=== PATIENT | female | born 1940 | race Caucasian/White ===

== ENCOUNTER 2020-08-13 16:52 | Outpatient (REF) | payer MEDICARE, SELFPAY ==
[2020-08-13 18:02] LABS: C Reactive Protein 2.16 mg/dL (< or = 0.50)
[2020-08-13 18:11] LABS: Rheumatoid Factor < 15.0 IU/mL (<15.0)
[2020-08-13 18:28] LABS: Erythrocyte Sedimentation Rate 36 MM/HR (0-20)
[2020-08-14 13:37] LABS: Anti Nuclear Antibody Screen NEGATIVE (NEGATIVE)
== END 2020-08-13 16:53 | disposition home or self-care (01) ==
LOC: HO.LAB 16:52
PROVIDERS: PCP Physician Assistant; Visit Provider Physician Assistant
DX: M25.50 Pain in unspecified joint (principal)
CPT/HCPCS: 36415; 85652; 86038; 86039; 86140; 86431

== ENCOUNTER 2020-09-25 15:15 | Outpatient (REF) | payer MEDICARE, SELFPAY ==
[2020-09-25 16:33] LABS: Glucose Urine UA NEG (NEG); Leukocyte Esterase Urine NEG (NEG); Nitrite Urine NEG (NEG); PH 5.5 (5.0-8.0); Specific Gravity - Urine 1.025 (1.005-1.025); Urine Blood TRACE (NEG); Urine Ketones 5 MG/DL (NEG); Urine Protein NEG (NEG-TRACE)
[2020-09-25 16:39] LABS: Appearance Urine CLEAR; Color Urine AMBER
[2020-09-25 16:56] LABS: Bacteria Urine TRACE /LPF; Calcium Oxalate Crystals Urine 1+ /LPF; Mucus Urine 2+ /LPF; Squamous Epithelial Cell Urine 1+ /LPF; WBC Urine 0 /HPF (0-4)
== END 2020-09-25 15:16 | disposition home or self-care (01) ==
LOC: HO.LAB 15:15
PROVIDERS: PCP Physician Assistant; Visit Provider Physician Assistant
DX: R30.0 Dysuria (principal)
CPT/HCPCS: 81001

== ENCOUNTER 2020-11-19 11:03 | Outpatient (REF) | payer MEDICARE, SELFPAY ==
[2020-11-19 12:29] LABS: MANUAL DIFF FLAG NO
[2020-11-19 12:33] LABS: Basophils Absolute Auto 0.1 X10*3/uL (0.0-0.2); Basophils Percent Auto 0.6 % (0-2); Eosinophils Absolute Auto 0.2 X10*3/uL (0.0-0.4); Eosinophils Percent Auto 1.6 % (0-4); Hematocrit 44.1 % (37-47); Hemoglobin 13.8 g/dl (12.0-16.0); Imm Gran Abs Auto 0.05 X10*3/uL (0.00-0.03); Imm Gran Pct Auto 0.5 % (0.0-0.4); Lymphocytes Absolute Auto 2.5 X10*3/uL (1.2-4.9); Lymphocytes Percent Auto 26.2 % (20-40); Mean Corpuscular HGB Conc 31.3 g/dl (31.0-35.0); Mean Corpuscular Hemoglobin 30.2 pg (27.0-33.0); Mean Corpuscular Volume 96.5 fL (80-98); Mean Platelet Volume 11.7 fL (9.4-12.3); Monocytes Absolute Auto 0.9 X10*3/uL (0.1-1.2); Monocytes Percent Auto 9.1 % (2-11); Platelet Count 258 X10*3/uL (160-400); Red Blood Count 4.57 X10*6/uL (4.20-5.50); Red Cell Distribution Width 13.4 % (11.0-16.0); White Blood Count 9.7 X10*3/uL (4.8-10.8)
[2020-11-19 12:56] LABS: Alanine Aminotransferase 11 U/L (0-31); Albumin Level 3.7 g/dL (3.5-5.0); Alkaline Phosphatase 76 U/L (39-117); Anion Gap 10 (12-20); Aspartate Amino Transferase 11 U/L (5-31); Bilirubin Total 0.4 mg/dL (0.0-1.0); Blood Urea Nitrogen 18 mg/dL (9-16); C Reactive Protein 0.29 mg/dL (< or = 0.50); Calcium 9.8 mg/dL (8.4-10.2); Carbon Dioxide 29 mmol/L (22-29); Chloride 108 mmol/L (96-108); Estimated Glomerular Filt Rate > 60; Glucose Random 93 mg/dL (60-115); Potassium 5.2 mmol/L (3.3-5.1); Sodium 142 mmol/L (135-145); Total Protein 6.6 g/dL (6.5-8.0)
[2020-11-19 13:22] LABS: Erythrocyte Sedimentation Rate 11 MM/HR (0-20)
[2020-11-20 05:26] LABS: Lyme Abs Screen <0.90 index
[2020-11-20 20:02] LABS: Cyclic Citrullinated Peptide <16 UNITS
== END 2020-11-19 11:04 | disposition home or self-care (01) ==
LOC: HO.LAB 11:03
PROVIDERS: PCP Physician Assistant; Visit Provider Student in an Organized Health Care Education/Training Program
DX: M25.50 Pain in unspecified joint (principal)
CPT/HCPCS: 36415; 80053; 85025; 85652; 86140; 86200; 86617; 86618; 99202

== ENCOUNTER → 2020-12-15 14:24 | Outpatient (BNVA) | payer MEDICARE, SELFPAY | PROVIDERS: PCP Physician Assistant; Visit Provider Student in an Organized Health Care Education/Training Program | DX: M25.50 Pain in unspecified joint (principal) | CPT/HCPCS: 99212 ==

== ENCOUNTER 2021-02-22 11:47 | Outpatient (REF) | payer MEDICARE, SELFPAY ==
[2021-02-22 13:51] LABS: C Reactive Protein 0.51 mg/dL (< or = 0.50)
[2021-02-22 14:07] LABS: Erythrocyte Sedimentation Rate 16 MM/HR (0-20)
== END 2021-02-22 11:48 | disposition home or self-care (01) ==
LOC: HO.LAB 11:47
PROVIDERS: PCP Physician Assistant; Visit Provider Student in an Organized Health Care Education/Training Program
DX: M25.50 Pain in unspecified joint (principal)
CPT/HCPCS: 36415; 85652; 86140

== ENCOUNTER → 2021-02-26 14:19 | Outpatient (BNVA) | payer MEDICARE, SELFPAY | PROVIDERS: PCP Physician Assistant; Visit Provider Student in an Organized Health Care Education/Training Program | DX: M35.3 Polymyalgia rheumatica (principal); R51.9 Headache, unspecified | CPT/HCPCS: 99212 ==

== ENCOUNTER 2021-03-17 16:08 | Outpatient (REF) | payer MEDICARE, SELFPAY ==
--- NOTE | ~2021-03-17 | US_ITS ---
EXAMINATION: US SOFT TISSUE OF THE NECK CLINICAL INFORMATION: Polymyalgia rheumatica. COMPARISON: None TECHNIQUE: Linear transducer grayscale and color Doppler examination of the temporal arteries. FINDINGS: The temporal arteries appear morphologically normal. No evidence of wall thickening or halo sign is seen. Temporal artery peak systolic velocities are normal measuring 40, 86 and 46 cm/s proximally in the midportion and distally on the right and 72 x 62 x 44 centimeters per second on the left. Frontal branch artery demonstrate normal peak systolic velocities measuring 52 cm/s on the right and 57 mm/s on the left. Parietal branch branch of the temporal arteries demonstrates normal peak systolic velocity of 52 cm/s on the right and 57 cm/s on the left. US/US soft tiss head and/or neck IMPRESSION: Normal temporal artery ultrasound.
== END 2021-03-17 16:09 | disposition home or self-care (01) ==
LOC: HO.US 16:08
PROVIDERS: Visit Provider Student in an Organized Health Care Education/Training Program
DX: M35.3 Polymyalgia rheumatica (principal)
CPT/HCPCS: 76536

== ENCOUNTER → 2021-03-19 09:45 | Outpatient (BNVA) | payer MEDICARE, SELFPAY | PROVIDERS: PCP Physician Assistant; Visit Provider Student in an Organized Health Care Education/Training Program | DX: M35.3 Polymyalgia rheumatica (principal); R51.9 Headache, unspecified | CPT/HCPCS: Q3014 ==

== ENCOUNTER 2021-04-12 11:53 | Observation (INO) | payer MEDICARE, SELFPAY ==
[2021-04-12] VITALS (11 sets, daily range): BP systolic 114–184; BP diastolic 63–87; PULSE 54–87; RESP 16–18; TEMP 36.6–36.8; O2SAT 95–99; BMI 22.4
--- NOTE | ~2021-04-12 | US_ITS ---
EXAMINATION: US EXTRACRANIAL CAROTID DUPLEX, BILATERAL CLINICAL INFORMATION: Syncope COMPARISON: Previous carotid ultrasound exam December [address] April 2021 TECHNIQUE: Real-time ultrasound and Doppler techniques (integrating B-mode 2-D vascular images, Doppler spectral analysis and color-flow Doppler imaging) were utilized to interrogate the extracranial carotid arteries, the vertebral arteries and proximal subclavian arteries bilaterally. The degree of stenosis is determined by criteria similar to NASCET. FINDINGS: Right Side: 1. There is mild to moderate atherosclerotic plaque seen in the bifurcation/proximal ICA region. 2. The common carotid artery PSV proximally is 108 cm/s and distally 63 cm/s. 3. The proximal internal carotid artery velocities are 80 cm/s systolic and 22 cm/s diastolic. 4. The proximal external carotid artery PSV is 107 cm/s. 5. The vertebral artery shows antegrade flow. 6. The subclavian artery waveforms are normal. Left Side: 1. There is mild to moderate atherosclerotic plaque seen in the bifurcation/proximal ICA region. 2. The common carotid artery PSV proximally is 105 cm/s and distally 86 cm/s. 3. The proximal internal carotid artery velocities are 75 cm/s systolic and 15 cm/s diastolic. 4. The proximal external carotid artery PSV is 96 cm/s. 5. The vertebral artery shows antegrade flow. 6. The subclavian artery waveforms are normal. There are 2 left thyroid nodules. These appear solid and isoechoic and measure 1 x 0.9 x 1.4 cm and 2.9 x 2.2 x 2.2 cm. US/US carotid duplex BI IMPRESSION: 1. RIGHT: Mild to moderate atherosclerotic plaque. 0-49% right ICA stenosis. 2. LEFT: Mild to moderate atherosclerotic plaque. 0-49% left ICA stenosis. 3. In comparison with prior exam December 2014 there is no change in disease severity on the right and interval increase in disease severity on the left. Left thyroid nodules, largest measuring 2.9 x 2.2 x 2.2 cm. Follow-up thyroid recommended.
--- NOTE | ~2021-04-12 | CT_ITS ---
EXAMINATION: CT BRAIN AND CT CERVICAL SPINE WITHOUT CONTRAST. CLINICAL INFORMATION: Fall, LOC and vomiting. COMPARISON: None TECHNIQUE: 5 mm thin axial and reformatted 2 mm thin sagittal and coronal images of brain were obtained without contrast. Subsequently axial 3 mm thin and reformatted 2 mm thin sagittal coronal images of brain were obtained. DLP [id number]. FINDINGS: Brain: There is no acute intra-axial, extra-axial bleed, masses or midline shift is no acute infarction evolution. There is no edema. The lateral ventricles are symmetrical but mildly enlarged and so other cortical sulci. There is diffuse periventricular hypodensity in both cerebral hemispheres without mass effect. Bone windows reveal no calvarial abnormality. No fracture seen. There is no scalp soft tissue abnormality. There is complete opacification of left maxillary, ethmoid and frontal sinuses. Rest of the sinuses and mastoid air cells are well-aerated there is john bullosa right middle turbinate.. Cervical spine: On sagittal reconstructed images there is no mild straightening of cervical lordosis. There is grade 1 anterolisthesis C3 over C4, C4 or C5 and C5 over C6 disc level. There is marrow mild narrowing of C4-C5, C5-C6, C6-C7 and C7-T1 disc levels. The craniovertebral junction and the C1-C2 alignment is normal. There is mild left C2-C3, C3-C4, C4-C5 facet joint arthropathy. There is no visible fracture or lytic process. The prevertebral soft tissues are normal. CT/CT cervical spine wo con IMPRESSION: No acute intracranial process seen. Acute left frontal, ethmoid and maxillary sinus inflammatory changes. There is mild straightening of cervical lordosis. No visible acute fracture or dislocation seen. There is grade 1 degenerative anterolisthesis C4 over C5 and C5 over C6. There is no visible fracture or lytic process seen.
--- NOTE | ~2021-04-12 | CT_ITS ---
EXAMINATION: CT ANGIOGRAM OF THE CHEST WITH AND WITHOUT CONTRAST (CT PULMONARY ANGIOGRAM FOR PE) CLINICAL INFORMATION: Reason for Exam syncope, elevated dimer COMPARISON: None TECHNIQUE: Prior to contrast administration, noncontrast localization images were obtained. Subsequently, multidetector volumetric imaging was performed from the thoracic inlet to below the diaphragms following the administration of 80 mL Omnipaque 350 intravenous contrast. No contrast reaction reported Sagittal, coronal, and MIP oblique sagittal reformatted images were obtained on the CT workstation, uploaded to PACS, and reviewed. This CT examination was performed using dose optimization techniques as appropriate, variously including the following: *Automated exposure control *Adjustment of mA and/or kV according to patient size (this includes techniques or standardized protocols for targeted exams where dose is matched to indication/reason for exam; i.e. extremities or head) *Use of iterative reconstruction technique Total exam dose-length product 267 mGy-cm FINDINGS: QUALITY OF STUDY/CONTRAST BOLUS: Satisfactory. PULMONARY ARTERIES: No central or segmental pulmonary emboli. THORACIC AORTA: No aneurysm or dissection. LUNG: Moderate apical predominant emphysematous disease. Bilateral posterior dependent atelectasis, left greater than right. PLEURA: No pleural effusion or pneumothorax. MEDIASTINUM: Normal heart size. No pericardial effusion. No hilar or mediastinal lymphadenopathy. No evidence of septal bowing or right heart strain. CHEST WALL/AXILLA: No axillary or internal mammary lymphadenopathy. OSSEOUS STRUCTURES: No acute or suspicious osseous abnormality. UPPER ABDOMEN: Redemonstration of the left adrenal cystic lesion. No reflux of contrast into the hepatic veins to suggest elevated right heart pressures. CT/CT angio chest PE protocol IMPRESSION: No pulmonary embolism. Bibasilar atelectasis, left greater than right. VTE: negative
--- NOTE | ~2021-04-12 | XR_ITS ---
EXAMINATION: XR SACRUM AND COCCYX CLINICAL INFORMATION: Fall, coccyx pain. COMPARISON: None TECHNIQUE: 2 views of the sacrum and 2 views of the coccyx were obtained. FINDINGS: There is no visible acute fracture, dislocation or subluxation seen. The SI joints are symmetrical and normal. The presacral and postsurgical soft tissues are normal. XR/XR sacrum coccyx min 2V IMPRESSION: Unremarkable sacrum and coccyx exam.
--- NOTE | 2021-04-12 12:07 | ECG_ITS ---
Test Reason : SYNCOPE Blood Pressure : / mmHG Vent. Rate : 063 BPM Atrial Rate : 063 BPM P-R Int : 218 ms QRS Dur : 096 ms QT Int : 468 ms P-R-T Axes : 066 -73 019 degrees QTc Int : 478 ms Sinus rhythm with 1st degree A-V block Left anterior fascicular block Cannot rule out Inferior infarct (masked by fascicular block?) , age undetermined Possible Anterior infarct (cited on or before 14-MAY-2015) Abnormal ECG When compared with ECG of 14-MAY-2015 16:20, MT interval has increased Incomplete right bundle branch block is no longer Present Referred By: Alicia Amor Electronically Signed By:MICHELLE MURRAY
--- NOTE | 2021-04-12 12:10 | ED.GENADULT ---
HPI - General Adult General Chief complaint: Syncope Stated complaint: SYNCOPAL EPISODE,HEAD LAC,-THINNER,+C-COLLAR Time Seen by Provider: 04/12/21 11:56 Source: patient and EMS Mode of arrival: EMS Limitations: no limitations History of Present Illness HPI narrative: Patient comes emergency room complaining of syncopal episode leading to a fall and head laceration. Patient states that she was standing in her kitchen preparing herself a bagel, suddenly she had a sensation of profound weakness, patient fell backwards. Patient states she lost consciousness. Patient estimates that she was on the floor for approximately 15 minutes before her daughter found her. Patient complaining of localized scalp pain. Denies neck pain, complaining of coccyx pain. In the ambulance, patient started complaining of nausea and vomiting. She was given 1 dose of Zofran. On arrival to the emergency room, patient still feels very nauseous. Patient denies being on blood thinners. Patient denies chest pain, no shortness of breath, no symptoms prior to the syncopal episode. Related Data Previous Rx's Medication Instructions Recorded prednisone 1 mg tablet 4 mg PO DAILY #120 tab 03/02/21 Allergies Allergy/AdvReac Type Severity Reaction Status Date / Time codeine [CODEINE] Allergy Intermediate BUMPS IN Verified 04/12/21 12:05 MOUTH Penicillins [PENICILLINS] Allergy Intermediate mouth sores Verified 04/12/21 12:05 Review of Systems Review of Systems: Constitutional : No Weight loss, No Fever, No Chills, No Night Sweats, No Fatigue, No Malaise ENT/Mouth : No Hearing loss, No Ear Pain, No Nasal Congestion, No Sinus Pain, No Hoarseness, No sore throat, No Rhinorrhea, No Swallowing Difficulty Eyes: No Eye Pain, No Swelling, No Redness, No Foreign Body, No Discharge, No Vision Changes Cardiovascular : No Chest Pain, No SOB, No Dyspnea on Exertion, No Orthopnea, No Edema, No Palpitations Respiratory : No Cough, No Sputum, No Wheezing, No Smoke Exposure, No Dyspnea Gastrointestinal : No Nausea, No Vomiting, No Diarrhea, No Constipation, No abdominal Pain, No Hematochezia, No Melena Genitourinary : no irregular bleeding, No Dysuria, No Urinary Frequency, No Hematuria, No Urinary Incontinence, No Urgency, No Flank Pain, No Urinary Flow Changes, No Hesitancy Musculoskeletal : Complaining of coccyx pain Skin : Skin laceration to the scalp Neuro : No Weakness, No Numbness, No Paresthesias, complaining of a syncopal episode, loss of consciousness Psych : No Anxiety/Panic, No Depression, No SI/HI/AH/VH, No Social Issues, Heme/Lymph: No Bruising, No Bleeding,No Lymphadenopathy Endocrine : No Polyuria, No Polydipsia, No Temperature Intolerance [facility] Past Medical History Medical History Arthritis Surgical History Hx of appendectomy Hx of cholecystectomy Social History Social History Housing: House Alcohol intake: never Patient Tobacco Use Status: Current everyday Tobacco user Tobacco use type: Cigarette Cigarettes Per Day: 10 Years Smoked: 50 years Use of substances other than those prescribed or required for medical reasons: No Advance Directives: Yes Advance Directives Information Provided: Yes Advance Directives on File: No service: No Current occupational status: retired Physical Exam Vital Signs: Vital Signs: Last Vital Signs Temp 98.1 F 04/12/21 17:55 Pulse 54 04/12/21 17:55 Resp 18 04/12/21 17:55 BP 184/76 H 04/12/21 17:55 Pulse Ox 98 04/12/21 17:55 Body Mass Index 22.4 Const: Other: Appearance: Alert. Oriented X3. Patient seems nauseous, pale Eyes: Pupils equal, round and reactive to light. ENT: Pharynx normal. Neck: On C-collar precautions, no C-spine tenderness, no crepitus, no palpable step-offs CVS: Normal heart rate and rhythm. Pulses normal. Normal S1 and S2 Respiratory: No respiratory distress. Breath sounds normal. No Wheezing. No rales Abdomen: Soft and nontender. No rigidity. No distention. Skin: Skin cool to touch, pale, laceration to the scalp Extremities: No lower extremity edema. Moves all extremities, no pain to palpation, normal range of motion Neuro: Oriented X 3. No motor deficit. No sensory deficit. Moving all extermities. No slurred speech. Course Course Course Narrative: Patient states that she feels much better, however a bit dizzy when she stands up. Orthostatic vitals were negative. I discussed the patient with our hospitalist, patient is being admitted. Procedures Laceration Laceration 1: Site: scalp Size (cm): 3 Description: irregular Depth: simple, single layer Skin layer closed with: other (Sharri) Number of sutures: 4 Medical Decision Making Lab Data Result diagrams: 04/12/21 12:21 04/12/21 12:21 Labs: Lab Results 04/12/21 04/12/21 04/12/21 Range/Units 12:21 12:21 12:21 WBC 11.1 H (4.8-10.8) X10*3/uL RBC 4.24 (4.20-5.50) X10*6/uL Hgb 13.3 (12.0-16.0) g/dl Hct 41.2 (37-47) % MCV 97.2 (80-98) fL MCH 31.4 (27.0-33.0) pg MCHC 32.3 (31.0-35.0) g/dl RDW 13.3 (11.0-16.0) % Plt Count 264 (160-400) X10*3/uL MPV 11.2 (9.4-12.3) fL Immature Gran % (Auto) 0.5 H (0.0-0.4) % Neut % (Auto) 46.5 (45-73) % Lymph % (Auto) 41.2 H (20-40) % [place] % (Auto) 8.6 (2-11) % Eos % (Auto) 2.5 (0-4) % Baso % (Auto) 0.7 (0-2) % Lymph # (Auto) 4.6 (1.2-4.9) X10*3/uL [place] # (Auto) 1.0 (0.1-1.2) X10*3/uL Eos # (Auto) 0.3 (0.0-0.4) X10*3/uL Baso # (Auto) 0.1 (0.0-0.2) X10*3/uL Abs Immat Gran (auto) 0.06 H (0.00-0.03) X10*3/uL Absolute Neuts (auto) 5.2 (2.0-8.3) X10*3/uL Absolute Nucleated RBC 0.000 (0.0-0.012) X10*3/uL Nucleated RBC % (auto) 0.0 (0.0-0.2) /100WBC D-Dimer NG/ML Sodium 143 (135-145) mmol/L Potassium 3.8 D (3.3-5.1) mmol/L Chloride 109 H (96-108) mmol/L Carbon Dioxide 26 (22-29) mmol/L Anion Gap 12 (12-20) BUN 14 (9-16) mg/dL Creatinine 0.69 (0.5-1.4) mg/dL Estim Creat Clear Calc 58.5 Estimated GFR > 60 Random Glucose 102 (60-115) mg/dL Calcium 9.7 (8.4-10.2) mg/dL Total Bilirubin 0.3 (0.0-1.0) mg/dL Direct Bilirubin 0.2 (0.0-0.5) mg/dL AST 17 D (5-31) U/L ALT 12 (0-31) U/L Alkaline Phosphatase 71 (39-117) U/L Total Creatine Kinase 35 (26-140) U/L Troponin I High Sens < 3.5 (<3.5-17.0) ng/L Total Protein 6.9 (6.5-8.0) g/dL Albumin 3.7 (3.5-5.0) g/dL Urine Color Urine Appearance Urine pH (5.0-8.0) Ur Specific [place] (1.005-1.025) Urine Protein (NEG-TRACE) MG/DL Urine Glucose (UA) (NEG) MG/DL Urine Ketones (NEG) MG/DL Urine Blood (NEG) Urine Nitrite (NEG) Ur Leukocyte Esterase (NEG) Urine RBC (0) /HPF Urine WBC (0-4) /HPF Ur Squamous Epith Cells /LPF Urine Bacteria /LPF 04/12/21 04/12/21 04/12/21 Range/Units 15:06 15:06 16:43 WBC (4.8-10.8) X10*3/uL RBC (4.20-5.50) X10*6/uL Hgb (12.0-16.0) g/dl Hct (37-47) % MCV (80-98) fL MCH (27.0-33.0) pg MCHC (31.0-35.0) g/dl RDW (11.0-16.0) % Plt Count (160-400) X10*3/uL MPV (9.4-12.3) fL Immature Gran % (Auto) (0.0-0.4) % Neut % (Auto) (45-73) % Lymph % (Auto) (20-40) % [place] % (Auto) (2-11) % Eos % (Auto) (0-4) % Baso % (Auto) (0-2) % Lymph # (Auto) (1.2-4.9) X10*3/uL [place] # (Auto) (0.1-1.2) X10*3/uL Eos # (Auto) (0.0-0.4) X10*3/uL Baso # (Auto) (0.0-0.2) X10*3/uL Abs Immat Gran (auto) (0.00-0.03) X10*3/uL Absolute Neuts (auto) (2.0-8.3) X10*3/uL Absolute Nucleated RBC (0.0-0.012) X10*3/uL Nucleated RBC % (auto) (0.0-0.2) /100WBC D-Dimer 705 NG/ML Sodium (135-145) mmol/L Potassium (3.3-5.1) mmol/L Chloride (96-108) mmol/L Carbon Dioxide (22-29) mmol/L Anion Gap (12-20) BUN (9-16) mg/dL Creatinine (0.5-1.4) mg/dL Estim Creat Clear Calc Estimated GFR Random Glucose (60-115) mg/dL Calcium (8.4-10.2) mg/dL Total Bilirubin (0.0-1.0) mg/dL Direct Bilirubin (0.0-0.5) mg/dL AST (5-31) U/L ALT (0-31) U/L Alkaline Phosphatase (39-117) U/L Total Creatine Kinase (26-140) U/L Troponin I High Sens < 3.5 (<3.5-17.0) ng/L Total Protein (6.5-8.0) g/dL Albumin (3.5-5.0) g/dL Urine Color YELLOW Urine Appearance CLEAR Urine pH 6.5 (5.0-8.0) Ur Specific [place] 1.010 (1.005-1.025) Urine Protein NEG (NEG-TRACE) MG/DL Urine Glucose (UA) NEG (NEG) MG/DL Urine Ketones NEG (NEG) MG/DL Urine Blood TRACE (NEG) Urine Nitrite NEG (NEG) Ur Leukocyte Esterase NEG (NEG) Urine RBC 0-2 (0) /HPF Urine WBC 0-2 (0-4) /HPF Ur Squamous Epith Cells TRACE /LPF Urine Bacteria NONE /LPF Imaging Data CTA : Radiologist's impression: FINDINGS: QUALITY OF STUDY/CONTRAST BOLUS: Satisfactory. PULMONARY ARTERIES: No central or segmental pulmonary emboli.? THORACIC AORTA: No aneurysm or dissection. LUNG: Moderate apical predominant emphysematous disease. Bilateral posterior dependent atelectasis, left greater than right. PLEURA: No pleural effusion or pneumothorax. MEDIASTINUM: Normal heart size.? No pericardial effusion.? No hilar or mediastinal lymphadenopathy.? No evidence of septal bowing or right heart strain. CHEST WALL/AXILLA: No axillary or internal mammary lymphadenopathy. OSSEOUS STRUCTURES: No acute or suspicious osseous abnormality.? UPPER ABDOMEN: Redemonstration of the left adrenal cystic lesion. No reflux of contrast into the hepatic veins to suggest elevated right heart pressures. CT/CT angio chest PE protocol IMPRESSION: No pulmonary embolism. Bibasilar atelectasis, left greater than right. ? VTE: negative Head and cervical spine CT: Radiologist's impression: [address] [address] [address] Scan Report Signed Patient: Soledad Clark MR#: [id number] : 1940 Acct:[id number] Age/Sex: 80 / F ADM Date: 04/12/21 Loc: HO.ED Attending Dr: Ordering Physician: Alicia Amor MD Date of Service: 04/12/21 Procedure(s): CT head/brain wo con Accession Number(s): [id number] cc: Alicia Amor MD~ EXAMINATION: CT BRAIN AND CT CERVICAL SPINE WITHOUT CONTRAST. CLINICAL INFORMATION: Fall, LOC and vomiting.? COMPARISON: None? TECHNIQUE: 5 mm thin axial and reformatted 2 mm thin sagittal and coronal images of brain were obtained without contrast. Subsequently axial 3 mm thin and reformatted 2 mm thin sagittal coronal images of brain were obtained. DLP 828. FINDINGS: Brain: There is no acute intra-axial, extra-axial bleed, masses or midline shift is no acute infarction evolution. There is no edema. The lateral ventricles are symmetrical but mildly enlarged and so other cortical sulci. There is diffuse periventricular hypodensity in both cerebral hemispheres without mass effect. Bone windows reveal no calvarial abnormality. No fracture seen. There is no scalp soft tissue abnormality. There is complete opacification of left maxillary, ethmoid and frontal sinuses. Rest of the sinuses and mastoid air cells are well-aerated there is john bullosa right middle turbinate.. Cervical spine: On sagittal reconstructed images there is no mild straightening of cervical lordosis. There is grade 1 anterolisthesis C3 over C4, C4 or C5 and C5 over C6 disc level. There is marrow mild narrowing of C4-C5, C5-C6, C6-C7 and C7-T1 disc levels. The craniovertebral junction and the C1-C2 alignment is normal. There is mild left C2-C3, C3-C4, C4-C5 facet joint arthropathy. There is no visible fracture or lytic process. The prevertebral soft tissues are normal. CT/CT head/brain wo con IMPRESSION: No acute intracranial process seen. ? Acute left frontal, ethmoid and maxillary sinus inflammatory changes. ? There is mild straightening of cervical lordosis. No visible acute fracture or dislocation seen. ? There is grade 1 degenerative anterolisthesis C4 over C5 and C5 over C6. There is no visible fracture or lytic process seen. ECG Data Attestation: I personally reviewed and interpreted this ECG as follows: (Sinus bradycardia first-degree block, heart rate 63, no ST segment depression or elevation, no T-wave inversion, QTC 478. EKG 2: Sinus bradycardia 1st degree block, heart rate 55, no changes from 1st EKG.) Discharge Plan Discharge Clinical Impression: Syncope, Scalp laceration Patient Disposition: Admitted As Inpatient Prescriptions: No Action prednisone 1 mg tablet 4 mg PO DAILY Qty: 120 RF: 2
[2021-04-12 12:25] LABS: MANUAL DIFF FLAG NO
[2021-04-12] MEDS: Prochlorperazine Edisylate 10 MG/2 ML VIAL IVPUSH (12:25)
[2021-04-12] MEDS: 0.9 % Sodium Chloride 1,000 ML 999 ML IVCONT ×2 (12:25→17:51)
[2021-04-12] MEDS: Acetaminophen 325 MG TABLET 650 MG PO ×2 (12:25→23:02)
[2021-04-12 12:27] LABS: Basophils Absolute Auto 0.1 X10*3/uL (0.0-0.2); Basophils Percent Auto 0.7 % (0-2); Eosinophils Absolute Auto 0.3 X10*3/uL (0.0-0.4); Eosinophils Percent Auto 2.5 % (0-4); Hematocrit 41.2 % (37-47); Hemoglobin 13.3 g/dl (12.0-16.0); Imm Gran Abs Auto 0.06 X10*3/uL (0.00-0.03); Imm Gran Pct Auto 0.5 % (0.0-0.4); Lymphocytes Absolute Auto 4.6 X10*3/uL (1.2-4.9); Lymphocytes Percent Auto 41.2 % (20-40); Mean Corpuscular HGB Conc 32.3 g/dl (31.0-35.0); Mean Corpuscular Hemoglobin 31.4 pg (27.0-33.0); Mean Corpuscular Volume 97.2 fL (80-98); Mean Platelet Volume 11.2 fL (9.4-12.3); Monocytes Percent Auto 8.6 % (2-11); Neutrophils Absolute Auto 5.2 X10*3/uL (2.0-8.3); Neutrophils Percent Auto 46.5 % (45-73); Platelet Count 264 X10*3/uL (160-400); Red Blood Count 4.24 X10*6/uL (4.20-5.50); Red Cell Distribution Width 13.3 % (11.0-16.0); White Blood Count 11.1 X10*3/uL (4.8-10.8)
--- NOTE | 2021-04-12 12:28 | PC.NURSE ---
patient a&ox3, pvc monitor applied pt nsr on monitor, vitals stable, iv inserted by ems- pt labs drawn, medicated per order, red socks/fall wristband placed, stretcher in lowest position, pt c/o 02/16 head pain, will continue to monitor
--- NOTE | 2021-04-12 12:29 | PC.NURSE ---
pt to ct scan
[2021-04-12 12:46] LABS: Alanine Aminotransferase 12 U/L (0-31); Albumin Level 3.7 g/dL (3.5-5.0); Alkaline Phosphatase 71 U/L (39-117); Anion Gap 12 (12-20); Aspartate Amino Transferase 17 U/L (5-31); Bilirubin Direct 0.2 mg/dL (0.0-0.5); Bilirubin Total 0.3 mg/dL (0.0-1.0); Blood Urea Nitrogen 14 mg/dL (9-16); Calcium 9.7 mg/dL (8.4-10.2); Carbon Dioxide 26 mmol/L (22-29); Chloride 109 mmol/L (96-108); Creatinine Clr Calc Pharmacy 58.5; Estimated Glomerular Filt Rate > 60; Glucose Random 102 mg/dL (60-115); Potassium 3.8 mmol/L (3.3-5.1); Sodium 143 mmol/L (135-145); Total Protein 6.9 g/dL (6.5-8.0)
[2021-04-12 12:48] LABS: Troponin-I High Sensitivity < 3.5 ng/L (<3.5-17.0)
--- NOTE | 2021-04-12 14:05 | PC.NURSE ---
patient a&ox3, cardiac rehabilitation program director intact, vss, patient on bedpan to provide urine, dr pryor in to talk to daughter who is at bedside, will continue to monitor.
[2021-04-12 15:13] LABS: Appearance Urine CLEAR; Color Urine YELLOW; Glucose Urine UA NEG (NEG); Leukocyte Esterase Urine NEG (NEG); Nitrite Urine NEG (NEG); PH 6.5 (5.0-8.0); UACC Culture Trigger NO; Urine Blood TRACE (NEG); Urine Ketones NEG (NEG); Urine Protein NEG (NEG-TRACE)
--- NOTE | 2021-04-12 15:28 | ECG_ITS ---
Test Reason : HX SYNCOPE Blood Pressure : / mmHG Vent. Rate : 055 BPM Atrial Rate : 055 BPM P-R Int : 220 ms QRS Dur : 098 ms QT Int : 460 ms P-R-T Axes : 060 -70 028 degrees QTc Int : 440 ms Sinus bradycardia with 1st degree A-V block Left anterior fascicular block Possible Anterior infarct (cited on or before 14-MAY-2015) Abnormal ECG When compared with ECG of 12-APR-2021 12:55, No significant change was found Referred By: Alicia Amor Electronically Signed By:MICHELLE MURRAY
[2021-04-12 15:30] LABS: Troponin-I High Sensitivity < 3.5 ng/L (<3.5-17.0)
[2021-04-12 15:32] LABS: RBC Urine 0-2 /HPF (0); WBC Urine 0-2 /HPF (0-4)
[2021-04-12 15:33] LABS: Squamous Epithelial Cell Urine TRACE /LPF
--- NOTE | 2021-04-12 16:18 | PC.NURSE ---
patient a&ox3, pt c/o mild headache, vitals stable, daughter at bedside asking about patients disposition and wishing to speak with provider, will notify provider and continue to monitor.
[2021-04-12 16:57] LABS: D Dimer 705 NG/ML
[2021-04-12] MEDS: Meclizine HCl 25 MG TABLET PO (17:51)
--- NOTE | 2021-04-12 17:55 | PC.NURSE ---
iv changed over for ct scan, pt medicated per order, vss, will continue to monitor
--- NOTE | 2021-04-12 18:12 | PC.NURSE ---
patient oob with stby assist to commode to urinate, pt tolerated well, pt remains nsr on shelter monitor, will continue to monitor.
[2021-04-12] MEDS: iohexoL 350 MG/ML 100 ML INFUS..BTL IV (18:31)
--- NOTE | 2021-04-12 20:07 | PM.IMHP ---
History of Present Illness Date of Service: 04/12/21 Chief Complaint: Syncope This is an 80-year-old female with past medical history of rheumatoid arthritis on chronic prednisone presents to the hospital with syncopal episode. Patient reports that she woke up likely her usual, bronchus, was sitting on the kitchen table, got up to make a bagel for herself, had a strange feeling that she is going to pass out, and the next thing she remembers is finding herself on the floor. She does not recall having any lightheadedness, no chest pain, no chest palpitations, no change in vision, no shortness of breath, no abdominal pain nausea or vomiting, no diarrhea constipation, no urinary symptoms and no lower extremity edema. When she came about she was not confused, she did not have evidence of seizure activity. No the mix weakness thing repair it no loss of bladder or bowel control. She had her head on her fall. On arrival to the ED patient hemodynamically stable with vital significant for temp of 98.1?, heart rate of 62, respiratory rate of 18, blood pressure of 114/70, room air. Labs are significant for WBC count of 11.1, otherwise unremarkable. UA negative. CT angiogram of the chest showed embolism. Bilateral atelectasis, A CT showed no acute intracranial process, acute left frontal ethmoid and maxillary sinus inflammatory changes, mild straightening of cervical lordosis. EKG showed first-degree AV block with left anterior fascicular block. Patient underwent stitches for the laceration in her head will be admitted for further management. Review of Systems Review of Systems: Yes all other systems are reviewed and are negative [facility] Medical History Arthritis Rheumatoid arthritis Family History Mother Coronary artery disease Myocardial infarction Pertinent family history: No pertinent history Surgical History Hx of appendectomy Hx of cholecystectomy Social History Housing: House Alcohol intake: never Patient Tobacco Use Status: Current everyday Tobacco user Tobacco use type: Cigarette Cigarette Packs Per Day: 0.5 Cigarettes Per Day: 10.0 Years Smoked: 50 years Smoked in Last 30 Days: Yes Patient Interested in Nicotine Replacement: No Patient Given Instructions on How to Stop Smoking: Yes Date Education Initiated: 04/12/21 Second Hand Smoke Exposure: Yes Use of substances other than those prescribed or required for medical reasons: No Advance Directives: Yes Advance Directives Information Provided: Yes Advance Directives on File: No Advance Directives Date on File: 04/12/21 service: No Current occupational status: retired Meds Allergies Allergy/AdvReac Type Severity Reaction Status Date / Time codeine [CODEINE] Allergy Intermediate BUMPS IN Verified 04/12/21 12:05 MOUTH Penicillins [PENICILLINS] Allergy Intermediate mouth sores Verified 04/12/21 12:05 Home Medications Medication Instructions Recorded Confirmed Last Taken Type ascorbic acid (vitamin C) 500 mg 500 mg PO DAILY 04/12/21 04/12/21 04/11/21 History tablet (Vitamin C) aspirin 81 mg tablet,delayed 81 mg PO DAILY 04/12/21 04/12/21 04/11/21 History release cholecalciferol (vitamin D3) 25 25 mcg PO DAILY 04/12/21 04/12/21 04/11/21 History mcg (1,000 unit) tablet (Vitamin D3) multivitamin 1 tab PO DAILY 04/12/21 04/12/21 04/11/21 History omega 6-plh-tra-fish oil 1,000 mg 1 cap PO DAILY 04/12/21 04/12/21 04/11/21 History (120 mg-180 mg) capsule (Fish Oil) prednisone 1 mg tablet 1 mg PO DAILY 04/12/21 04/12/21 04/11/21 History Physical Exam Vital Signs and Narrative: Vital Signs: Last Vital Signs Temp 98.1 F 04/12/21 17:55 Pulse 54 04/12/21 17:55 Resp 18 04/12/21 17:55 BP 184/76 H 04/12/21 17:55 Pulse Ox 98 04/12/21 17:55 Body Mass Index 22.4 Const: General: cooperative and no acute distress Orientation/consciousness: patient oriented x3 HENMT: Other: Laceration in the back of the head, status post suturing Eyes: General: appearance normal, both eyes and all related structures Pupils: Equal, round and reactive pupils present Resp: Effort & Inspection: normal respiratory effort Auscultation: clear to auscultation bilaterally Cardio: Rate: regular rate Rhythm: regular rhythm GI: Palpation (GI): Soft to palpation Auscultation: normal bowel sounds Skin: General skin exam: no rashes or lesions noted Neuro: Other: No neurological deficits General: patient oriented x3 Cranial nerves: Yes Equal, round and reactive pupils present Cognition (Neuro): normal cognition Extrem: General: Yes normal to inspection and Yes no pedal edema Results Labs CBC and Chem 7: 04/12/21 12:21 04/12/21 12:21 Labs: Laboratory Results - last 24 hr 04/12/21 04/12/21 04/12/21 12:21 12:21 12:21 MCV 97.2 MCH 31.4 MCHC 32.3 RDW 13.3 Plt Count 264 MPV 11.2 Immature Gran % (Auto) 0.5 H Neut % (Auto) 46.5 Lymph % (Auto) 41.2 H [place] % (Auto) 8.6 Eos % (Auto) 2.5 Baso % (Auto) 0.7 Lymph # (Auto) 4.6 [place] # (Auto) 1.0 Eos # (Auto) 0.3 Baso # (Auto) 0.1 Abs Immat Gran (auto) 0.06 H Absolute Neuts (auto) 5.2 Absolute Nucleated RBC 0.000 Nucleated RBC % (auto) 0.0 D-Dimer Anion Gap 12 Estim Creat Clear Calc 58.5 Estimated GFR > 60 Random Glucose 102 Calcium 9.7 Total Bilirubin 0.3 Direct Bilirubin 0.2 AST 17 D ALT 12 Alkaline Phosphatase 71 Total Creatine Kinase 35 Troponin I High Sens < 3.5 Total Protein 6.9 Albumin 3.7 Urine Color Urine Appearance Urine pH Ur Specific [place] Urine Protein Urine Glucose (UA) Urine Ketones Urine Blood Urine Nitrite Ur Leukocyte Esterase Urine RBC Urine WBC Ur Squamous Epith Cells Urine Bacteria 04/12/21 04/12/21 04/12/21 15:06 15:06 16:43 MCV MCH MCHC RDW Plt Count MPV Immature Gran % (Auto) Neut % (Auto) Lymph % (Auto) [place] % (Auto) Eos % (Auto) Baso % (Auto) Lymph # (Auto) [place] # (Auto) Eos # (Auto) Baso # (Auto) Abs Immat Gran (auto) Absolute Neuts (auto) Absolute Nucleated RBC Nucleated RBC % (auto) D-Dimer 705 Anion Gap Estim Creat Clear Calc Estimated GFR Random Glucose Calcium Total Bilirubin Direct Bilirubin AST ALT Alkaline Phosphatase Total Creatine Kinase Troponin I High Sens < 3.5 Total Protein Albumin Urine Color YELLOW Urine Appearance CLEAR Urine pH 6.5 Ur Specific [place] 1.010 Urine Protein NEG Urine Glucose (UA) NEG Urine Ketones NEG Urine Blood TRACE Urine Nitrite NEG Ur Leukocyte Esterase NEG Urine RBC 0-2 Urine WBC 0-2 Ur Squamous Epith Cells TRACE Urine Bacteria NONE Imaging Radiologist's Impressions: Impressions Cervical Spine CT 04/12/21 12:07 IMPRESSION: No acute intracranial process seen. Acute left frontal, ethmoid and maxillary sinus inflammatory changes. There is mild straightening of cervical lordosis. No visible acute fracture or dislocation seen. There is grade 1 degenerative anterolisthesis C4 over C5 and C5 over C6. There is no visible fracture or lytic process seen. Head CT 04/12/21 12:07 IMPRESSION: No acute intracranial process seen. Acute left frontal, ethmoid and maxillary sinus inflammatory changes. There is mild straightening of cervical lordosis. No visible acute fracture or dislocation seen. There is grade 1 degenerative anterolisthesis C4 over C5 and C5 over C6. There is no visible fracture or lytic process seen. Sacrum and Coccyx X-Ray 04/12/21 12:12 IMPRESSION: Unremarkable sacrum and coccyx exam. Chest CTA 04/12/21 17:34 IMPRESSION: No pulmonary embolism. Bibasilar atelectasis, left greater than right. VTE: negative Assessment and Plan (1) Syncope: Qualifiers: Syncope type: unspecified Qualified Code(s): R55 - Syncope and collapse Status: Acute (2) First degree AV block: Status: Acute 80-year-old female with past medical history of arthritis who presents the hospital syncopal episode. # syncope - possibly cardiogenic - EKG showing sinus rhythm with first-degree AV block and left anterior fascicular block -patient was also noted to have low heart rate in the 40s while on monitor - other vitals within normal range - whole obtain echocardiogram to - cardiology consult - admit to telemetry - monitor # arthritis - continue home his own # scalp laceration - secondary to the fall - status post suturing - monitor DVT prophylaxis: Early ambulation Quality Stroke Does the patient have a stroke diagnosis?: No VTE Prior VTE?: No VTE Risk Level:: Medical - low VTE Device Contraindication: Treatment Not Indicated VTE Drug Contraindication: Treatment Not Indicated
--- NOTE | 2021-04-12 20:39 | PHA.MEDREC ---
Pharmacy Consult ? Medication Reconciliation Pharmacy has completed the medication reconciliation. Spoke with patient in the ED. Patient reports taking prednisone 1 mg daily. Per pharmacy claim history Prednisone should be 4 mg daily but pt reports dose being reduced.
[2021-04-12 21:43] LABS: COVID-19 Test Negative (Negative)
--- NOTE | 2021-04-12 22:06 | PC.NURSE ---
nurse to nurse report given to Brandie PICHARDO
[2021-04-12] MEDS: 0.9 % Sodium Chloride Flush 3 ML SYRINGE IVFLUSH (23:03)
[2021-04-13] VITALS (10 sets, daily range): BP systolic 125–185; BP diastolic 60–92; PULSE 52–73; RESP 16–18; TEMP 35.6–36.6; O2SAT 94–98; BMI 23.3
[2021-04-13 07:03] LABS: MANUAL DIFF FLAG NO
[2021-04-13 07:06] LABS: Basophils Absolute Auto 0.1 X10*3/uL (0.0-0.2); Basophils Percent Auto 0.8 % (0-2); Eosinophils Absolute Auto 0.2 X10*3/uL (0.0-0.4); Eosinophils Percent Auto 2.6 % (0-4); Hematocrit 38.7 % (37-47); Hemoglobin 12.5 g/dl (12.0-16.0); Imm Gran Abs Auto 0.01 X10*3/uL (0.00-0.03); Imm Gran Pct Auto 0.1 % (0.0-0.4); Lymphocytes Absolute Auto 3.9 X10*3/uL (1.2-4.9); Lymphocytes Percent Auto 45.2 % (20-40); Mean Corpuscular HGB Conc 32.3 g/dl (31.0-35.0); Mean Corpuscular Hemoglobin 30.9 pg (27.0-33.0); Mean Corpuscular Volume 95.8 fL (80-98); Mean Platelet Volume 11.6 fL (9.4-12.3); Monocytes Absolute Auto 0.9 X10*3/uL (0.1-1.2); Neutrophils Absolute Auto 3.5 X10*3/uL (2.0-8.3); Neutrophils Percent Auto 41.3 % (45-73); Platelet Count 236 X10*3/uL (160-400); Red Blood Count 4.04 X10*6/uL (4.20-5.50); Red Cell Distribution Width 13.1 % (11.0-16.0); White Blood Count 8.6 X10*3/uL (4.8-10.8)
[2021-04-13 07:34] LABS: Anion Gap 11 (12-20); Blood Urea Nitrogen 8 mg/dL (9-16); Calcium 9.1 mg/dL (8.4-10.2); Carbon Dioxide 26 mmol/L (22-29); Chloride 110 mmol/L (96-108); Creatinine Clr Calc Pharmacy 68.4; Estimated Glomerular Filt Rate > 60; Glucose Random 84 mg/dL (60-115); Potassium 3.9 mmol/L (3.3-5.1); Sodium 143 mmol/L (135-145)
[2021-04-13] MEDS: predniSONE 1 MG TABLET PO (09:23)
[2021-04-13] MEDS: Ascorbic Acid 500 MG TABLET PO (09:23)
[2021-04-13] MEDS: Acetaminophen 325 MG TABLET 650 MG PO ×2 (09:23→19:38)
[2021-04-13] MEDS: Cholecalciferol (Vitamin D3) 25 MCG TABLET PO (09:23)
[2021-04-13] MEDS: Multivitamin TABLET 1 TAB PO (09:23)
[2021-04-13] MEDS: Aspirin Enteric Coated 81 MG TABLET.DR PO (09:23)
[2021-04-13] MEDS: 0.9 % Sodium Chloride Flush 3 ML SYRINGE IVFLUSH ×3 (09:24→19:39)
--- NOTE | 2021-04-13 10:08 | P.CONCA_ITS ---
History of Present Illness History of Present Illness Date of Service: 04/13/21 Requesting physician: Jana Acosta Chief complaint: Syncope Narrative: 80-year-old female who has background history of polymyalgia rheumatica, first-degree AV block and headaches who presented with syncope. She said she was at her daughter's place when while eating a bagel she felt orders if she is going to pass out and then lost consciousness. She denies any chest discomfort shortness of breath preceding these events. She said she did not have any abdominal discomfort when she was eating. She was in restroom before this happened and did not have any abdominal pain or constipation. No seizure- like activity. No tongue bite or urinary incontinence. Since then she has been fine. She was brought to emergency department and then admitted for further care. So far testing has been normal. Echocardiography reviewed which did not show any concerning issues. Found to have mildly orthostatic on vital signs. It appears she does not drink water and mostly drinks tea and Pepsi. [facility] Past Medical History Medical History Arthritis Rheumatoid arthritis Family History Family History Mother Coronary artery disease Myocardial infarction Surgical History Surgical History Hx of appendectomy Hx of cholecystectomy Social History Social History Housing: House Alcohol intake: never Patient Tobacco Use Status: Current everyday Tobacco user Tobacco use type: Cigarette Cigarette Packs Per Day: 0.5 Cigarettes Per Day: 10.0 Years Smoked: 50 years Smoked in Last 30 Days: Yes Patient Interested in Nicotine Replacement: No Patient Given Instructions on How to Stop Smoking: Yes Date Education Initiated: 04/12/21 Second Hand Smoke Exposure: Yes Use of substances other than those prescribed or required for medical reasons: No Advance Directives: Yes Advance Directives Information Provided: Yes Advance Directives on File: No Advance Directives Date on File: 04/12/21 service: No Current occupational status: retired Meds Allergies Allergy/AdvReac Type Severity Reaction Status Date / Time codeine [CODEINE] Allergy Intermediate BUMPS IN Verified 04/12/21 12:05 MOUTH Penicillins [PENICILLINS] Allergy Intermediate mouth sores Verified 04/12/21 12:05 Active Medications: Current Medications Acetaminophen (Acetaminophen 325 Mg Tablet) 650 mg PO Q6H PRN PRN Reason: Pain, Mild (Pain Scale 1-3) Last Admin: 04/13/21 09:23 Dose: 650 mg Documented by: Ascorbic Acid (Ascorbic Acid 500 Mg Tablet) 500 mg PO DAILY [facility] Last Admin: 04/13/21 09:23 Dose: 500 mg Documented by: Aspirin (Aspirin Enteric Coated 81 Mg Tablet.) 81 mg PO DAILY [facility] Last Admin: 04/13/21 09:23 Dose: 81 mg Documented by: Multivitamins/Vitamin C (Multivitamin Tablet) 1 tab PO DAILY [facility] Last Admin: 04/13/21 09:23 Dose: 1 tab Documented by: Pharmacy Consult (Consult Rx Perform Med Rec) 1 each MISCELLANE ONCE PRN PRN Reason: Consult order Prednisone (Prednisone 1 Mg Tablet) 1 mg PO DAILY [facility] Last Admin: 04/13/21 09:23 Dose: 1 mg Documented by: Sodium Chloride (0.9 % Sodium Chloride Flush 3 Ml Syringe) 3 ml IVFLUSH QSHIFT [facility] Last Admin: 04/13/21 09:24 Dose: 3 ml Documented by: Vitamin D (Cholecalciferol (Vitamin D3) 25 Mcg Tablet) 25 mcg PO DAILY [facility] Last Admin: 04/13/21 09:23 Dose: 25 mcg Documented by: Home Medications Medication Instructions Recorded Confirmed Last Taken Type ascorbic acid (vitamin C) 500 mg 500 mg PO DAILY 04/12/21 04/12/21 04/11/21 History tablet (Vitamin C) aspirin 81 mg tablet,delayed 81 mg PO DAILY 04/12/21 04/12/21 04/11/21 History release cholecalciferol (vitamin D3) 25 25 mcg PO DAILY 04/12/21 04/12/21 04/11/21 History mcg (1,000 unit) tablet (Vitamin D3) multivitamin 1 tab PO DAILY 04/12/21 04/12/21 04/11/21 History omega 7-sxc-iag-fish oil 1,000 mg 1 cap PO DAILY 04/12/21 04/12/21 04/11/21 History (120 mg-180 mg) capsule (Fish Oil) prednisone 1 mg tablet 1 mg PO DAILY 04/12/21 04/12/21 04/11/21 History Physical Exam Vital Signs: Vital Signs: Last Vital Signs Temp 97.5 F 04/13/21 07:29 Pulse 73 04/13/21 08:34 Resp 16 04/13/21 07:29 BP 167/89 H 04/13/21 08:34 Pulse Ox 98 04/13/21 07:29 Body Mass Index 23.3 GENERAL APPEARANCE: in no acute distress, pleasant. NECK: no carotid bruit, no jugular venous distention. SKIN: no suspicious lesions, warm and dry. HEART: no murmurs, regular rate and rhythm. LUNGS: clear to auscultation bilaterally. ABDOMEN: soft, nontender. EXTREMITIES: no edema. PERIPHERAL PULSES: equal. NEUROLOGIC: No gross deficits, AAO X 3 Results Labs and Meds Result diagrams: 04/13/21 06:36 04/13/21 06:36 Lab results: Laboratory Results - last 24 hr 04/12/21 04/12/21 04/12/21 12:21 12:21 12:21 WBC 11.1 H RBC 4.24 Hgb 13.3 Hct 41.2 MCV 97.2 MCH 31.4 MCHC 32.3 RDW 13.3 Plt Count 264 MPV 11.2 Immature Gran % (Auto) 0.5 H Neut % (Auto) 46.5 Lymph % (Auto) 41.2 H Phillips % (Auto) 8.6 Eos % (Auto) 2.5 Baso % (Auto) 0.7 Lymph # (Auto) 4.6 Phillips # (Auto) 1.0 Eos # (Auto) 0.3 Baso # (Auto) 0.1 Abs Immat Gran (auto) 0.06 H Absolute Neuts (auto) 5.2 Absolute Nucleated RBC 0.000 Nucleated RBC % (auto) 0.0 D-Dimer Sodium 143 Potassium 3.8 D Chloride 109 H Carbon Dioxide 26 Anion Gap 12 BUN 14 Creatinine 0.69 Estim Creat Clear Calc 58.5 Estimated GFR > 60 Random Glucose 102 Calcium 9.7 Total Bilirubin 0.3 Direct Bilirubin 0.2 AST 17 D ALT 12 Alkaline Phosphatase 71 Total Creatine Kinase 35 Troponin I High Sens < 3.5 Total Protein 6.9 Albumin 3.7 Urine Color Urine Appearance Urine pH Ur Specific [place] Urine Protein Urine Glucose (UA) Urine Ketones Urine Blood Urine Nitrite Ur Leukocyte Esterase Urine RBC Urine WBC Ur Squamous Epith Cells Urine Bacteria COVID-19 ([facility]) COVID-19 Clin Com 04/12/21 04/12/21 04/12/21 15:06 15:06 16:43 WBC RBC Hgb Hct MCV MCH MCHC RDW Plt Count MPV Immature Gran % (Auto) Neut % (Auto) Lymph % (Auto) Phillips % (Auto) Eos % (Auto) Baso % (Auto) Lymph # (Auto) Phillips # (Auto) Eos # (Auto) Baso # (Auto) Abs Immat Gran (auto) Absolute Neuts (auto) Absolute Nucleated RBC Nucleated RBC % (auto) D-Dimer 705 Sodium Potassium Chloride Carbon Dioxide Anion Gap BUN Creatinine Estim Creat Clear Calc Estimated GFR Random Glucose Calcium Total Bilirubin Direct Bilirubin AST ALT Alkaline Phosphatase Total Creatine Kinase Troponin I High Sens < 3.5 Total Protein Albumin Urine Color YELLOW Urine Appearance CLEAR Urine pH 6.5 Ur Specific [place] 1.010 Urine Protein NEG Urine Glucose (UA) NEG Urine Ketones NEG Urine Blood TRACE Urine Nitrite NEG Ur Leukocyte Esterase NEG Urine RBC 0-2 Urine WBC 0-2 Ur Squamous Epith Cells TRACE Urine Bacteria NONE COVID-19 ([facility]) COVID-19 Clin Com 04/12/21 04/13/21 04/13/21 20:44 06:36 06:36 WBC 8.6 RBC 4.04 L Hgb 12.5 Hct 38.7 MCV 95.8 MCH 30.9 MCHC 32.3 RDW 13.1 Plt Count 236 MPV 11.6 Immature Gran % (Auto) 0.1 Neut % (Auto) 41.3 L Lymph % (Auto) 45.2 H Phillips % (Auto) 10.0 Eos % (Auto) 2.6 Baso % (Auto) 0.8 Lymph # (Auto) 3.9 Phillips # (Auto) 0.9 Eos # (Auto) 0.2 Baso # (Auto) 0.1 Abs Immat Gran (auto) 0.01 Absolute Neuts (auto) 3.5 Absolute Nucleated RBC 0.000 Nucleated RBC % (auto) 0.0 D-Dimer Sodium 143 Potassium 3.9 Chloride 110 H Carbon Dioxide 26 Anion Gap 11 L BUN 8 L Creatinine 0.59 Estim Creat Clear Calc 68.4 Estimated GFR > 60 Random Glucose 84 Calcium 9.1 D Total Bilirubin Direct Bilirubin AST ALT Alkaline Phosphatase Total Creatine Kinase Troponin I High Sens Total Protein Albumin Urine Color Urine Appearance Urine pH Ur Specific [place] Urine Protein Urine Glucose (UA) Urine Ketones Urine Blood Urine Nitrite Ur Leukocyte Esterase Urine RBC Urine WBC Ur Squamous Epith Cells Urine Bacteria COVID-19 ([facility]) Negative COVID-19 Clin Com See Note Imaging Radiologist's impression: Impressions Cervical Spine CT 04/12/21 12:07 IMPRESSION: No acute intracranial process seen. Acute left frontal, ethmoid and maxillary sinus inflammatory changes. There is mild straightening of cervical lordosis. No visible acute fracture or dislocation seen. There is grade 1 degenerative anterolisthesis C4 over C5 and C5 over C6. There is no visible fracture or lytic process seen. Head CT 04/12/21 12:07 IMPRESSION: No acute intracranial process seen. Acute left frontal, ethmoid and maxillary sinus inflammatory changes. There is mild straightening of cervical lordosis. No visible acute fracture or dislocation seen. There is grade 1 degenerative anterolisthesis C4 over C5 and C5 over C6. There is no visible fracture or lytic process seen. Sacrum and Coccyx X-Ray 04/12/21 12:12 IMPRESSION: Unremarkable sacrum and coccyx exam. Chest CTA 04/12/21 17:34 IMPRESSION: No pulmonary embolism. Bibasilar atelectasis, left greater than right. VTE: negative Assessment and Plan (1) First degree AV block: Status: Acute (2) Syncope: Qualifiers: Syncope type: unspecified Qualified Code(s): R55 - Syncope and collapse Status: Acute Pleasant 80-year-old female who is presenting with syncope. Orthostatic vital sign were mildly abnormal. I have advised her to hydrate herself well. Lab work showed hemoglobin of 12.5, WBC 8.6, platelets 236, high sensitivity troponin level less than 3.5 and a D-dimer of 705. This led to a CT pulmonary angiogram which did not show any pulmonary embolism but did show bibasilar atelectasis left greater than right. Echocardiogram showed normal biventricular function without any significant valvular or pericardial pathology. I think a monitor on telemetry to make sure she does not develop any arrhythmia or heart block. If she is stable tomorrow then she should ambulate the hallways to see if she has any symptoms while ambulating and if she is fine then she can be discharged home and we will arrange 14 day Holter monitor for her. Thank you for allowing me to participate in the care of your patient. Please feel free to contact me if you have any questions. Procedures Date of Service Date of Service: 04/13/21
--- NOTE | 2021-04-13 11:48 | MHC.CM.PN ---
met with pt pt is indepdent does not anticapate the need for servceis when dcd has own transportaion home
--- NOTE | 2021-04-13 13:00 | CA_ITS ---
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 - Normal right ventricular cavity size and systolic function. - There is no evidence of pericardial effusion. Findings Left Ventricle Normal left ventricular size, thickness, systolic function, and wall motion. The visually estimated ejection fraction is between 60-65%. Diastolic function is normal for age. Right Ventricle Normal right ventricular cavity size and systolic function. Atria Both atria are normal in size. Aortic Valve Normal aortic valve structure and function. There is no aortic valve stenosis. There is no aortic valve regurgitation. Mitral Valve Normal mitral valve structure and function. There is no mitral valve regurgitation. There is no mitral valve stenosis. Pulmonic Valve The pulmonic valve is likely normal. Tricuspid Valve Normal tricuspid valve structure. There is trace tricuspid valve regurgitation. Normal right atrial pressure. There is no evidence of pulmonary hypertension. Great Vessels All visible segments of the aorta are normal in size. The pulmonary artery was not well visualized. Venous The inferior vena cava is normal in size and collapses greater than 50% with inspiration. Pericardium/Pleural There is no evidence of pericardial effusion. Prior Study Comparison No prior study available for comparison. Measurements 2D Linear Measurements IVSd: 1.08 0.6-0.9/0.6-1.0 cm LVIDd: 4.08 3.9-5.3/4.2-5.9 cm LVIDd Index: 2.40 2.4-3.2/2.2-3.1 cm/m2 LVIDs: 2.65 2.0-3.6 cm LVPWd: 0.86 0.7-1.1 cm Ao Root: 3.10 2.1-3.5 cm LA Diam: 3.30 2.7-3.8/3.0-4.0 cm LAIDs Index: 1.94 1.5-2.3 cm/m2 LV Mass: 156.15 67-162/88-224 g LV Mass Index: 91.85 43-95/49-115 g/m2 LVOT Diam: 2.00 3.0+(-)1.3 cm Mitral Valve MV Pk E: 0.67 MV PK A: 0.85 MV Decel Time: 308.00 E/A: 0.80 E'Lateral: 8.05 E'Medial: 6.09 E/E' Med: 11.10 E/E' Lat: 8.40 PHT: 90.00 MVA PHT: 2.44 Decel [place]: 2.18 Aortic Valve AoV Pk Juan Alberto: 1.55 AoV Mn Juan Alberto: 1.13 AoV VTI: 0.38 AoV Pk Grad: 10.00 Aov Mn Grad: 6.00 YOHAN Cont.VTI: 2.24 LVOT LVOT Pk Juan Alberto: 1.29 LVOT Mn Juan Alberto: 0.82 LVOT VTI: 0.27 LVOT Pk Grad: 7.00 LVOT Mn Grad: 3.00 LVOT Diam: 2.00 LVOT Area: 3.14 Diastolic Function MV Pk E: 0.67 MV Pk A: 0.85 E/A: 0.80 E'Medial: 6.09 E/E' Med: 11.10 E' Laterial: 8.05 E/E' Lat: 8.40 Tricuspid Valve TR Pk Juan Alberto: 2.25 TR Pk Grad: 20.00 Great Vessels Aorta Ao Root-2D: 3.10 2.0-3.7 cm Ao Asc: 3.00 2.1-3.4 cm Ao Arch: 2.90 Updated in Other Vendor System with Status of Final Ramirez Morgan MD electronically signed on 04/13/2021 1:21:30 PM with status of Final
--- NOTE | 2021-04-13 13:28 | HO.PM.IMPN ---
Subjective Subjective Date of Service: 04/13/21 Interval History: syncope Review of Systems Denies any new complaint of chest pain or shortness of breath or abdominal pain or fever or chills or nausea or vomiting Denies any cough Denies any weakness or numbness. Physical Exam Vital Signs: Vital Signs: Last Vital Signs Temp 96.1 F L 04/13/21 12:00 Pulse 58 04/13/21 12:00 Resp 16 04/13/21 12:00 BP 138/63 04/13/21 12:00 Pulse Ox 97 04/13/21 12:00 Body Mass Index 23.3 Physical exam: Appearance: Alert.? Oriented X3.? not in distress.? Eyes: Pupils equal, round and reactive to light.? Sclera nonicteric.? ENT: Pharynx normal.? Moist mucous membranes. cvs: rrr, [id number] , no murmur res: clear to auscultation ,no rhonchii or wheezing abd: no rebound or guarding ,nt, bs present. ext pulses present , no cyanosis ,Gait well balanced well coordinated. neuro: axo3 , nonfocal. skin:has 3-4 staple in left upper parietal area- dry,no swelling or bruising or any pain. Objective Data Active Medications Acetaminophen (Acetaminophen 325 Mg Tablet) 650 mg PO Q6H PRN PRN Reason: Pain, Mild (Pain Scale 1-3) Last Admin: 04/13/21 09:23 Dose: 650 mg Documented by: ALONDRA Ascorbic Acid (Ascorbic Acid 500 Mg Tablet) 500 mg PO DAILY [facility] Last Admin: 04/13/21 09:23 Dose: 500 mg Documented by: ALONDRA Aspirin (Aspirin Enteric Coated 81 Mg Tablet.Dr) 81 mg PO DAILY [facility] Last Admin: 04/13/21 09:23 Dose: 81 mg Documented by: ALONDRA Multivitamins/Vitamin C (Multivitamin Tablet) 1 tab PO DAILY [facility] Last Admin: 04/13/21 09:23 Dose: 1 tab Documented by: ALONDRA Pharmacy Consult (Consult Rx Perform Med Rec) 1 each MISCELLANE ONCE PRN PRN Reason: Consult order Prednisone (Prednisone 1 Mg Tablet) 1 mg PO DAILY [facility] Last Admin: 04/13/21 09:23 Dose: 1 mg Documented by: ALONDRA Sodium Chloride (0.9 % Sodium Chloride Flush 3 Ml Syringe) 3 ml IVFLUSH QSHIFT [facility] Last Admin: 04/13/21 09:24 Dose: 3 ml Documented by: ALONDRA Vitamin D (Cholecalciferol (Vitamin D3) 25 Mcg Tablet) 25 mcg PO DAILY [facility] Last Admin: 04/13/21 09:23 Dose: 25 mcg Documented by: ALONDRA Labs CBC & Chem 7: 04/13/21 06:36 04/13/21 06:36 Labs: Laboratory Results - last 24 hr 04/12/21 04/12/21 04/12/21 15:06 15:06 16:43 MCV MCH MCHC RDW Plt Count MPV Immature Gran % (Auto) Neut % (Auto) Lymph % (Auto) [place] % (Auto) Eos % (Auto) Baso % (Auto) Lymph # (Auto) [place] # (Auto) Eos # (Auto) Baso # (Auto) Abs Immat Gran (auto) Absolute Neuts (auto) Absolute Nucleated RBC Nucleated RBC % (auto) D-Dimer 705 Anion Gap Estim Creat Clear Calc Estimated GFR Random Glucose Calcium Troponin I High Sens < 3.5 Urine Color YELLOW Urine Appearance CLEAR Urine pH 6.5 Ur Specific [place] 1.010 Urine Protein NEG Urine Glucose (UA) NEG Urine Ketones NEG Urine Blood TRACE Urine Nitrite NEG Ur Leukocyte Esterase NEG Urine RBC 0-2 Urine WBC 0-2 Ur Squamous Epith Cells TRACE Urine Bacteria NONE COVID-19 ([facility]) COVID-19 Clin Com 04/12/21 04/13/21 04/13/21 20:44 06:36 06:36 MCV 95.8 MCH 30.9 MCHC 32.3 RDW 13.1 Plt Count 236 MPV 11.6 Immature Gran % (Auto) 0.1 Neut % (Auto) 41.3 L Lymph % (Auto) 45.2 H [place] % (Auto) 10.0 Eos % (Auto) 2.6 Baso % (Auto) 0.8 Lymph # (Auto) 3.9 [place] # (Auto) 0.9 Eos # (Auto) 0.2 Baso # (Auto) 0.1 Abs Immat Gran (auto) 0.01 Absolute Neuts (auto) 3.5 Absolute Nucleated RBC 0.000 Nucleated RBC % (auto) 0.0 D-Dimer Anion Gap 11 L Estim Creat Clear Calc 68.4 Estimated GFR > 60 Random Glucose 84 Calcium 9.1 D Troponin I High Sens Urine Color Urine Appearance Urine pH Ur Specific [place] Urine Protein Urine Glucose (UA) Urine Ketones Urine Blood Urine Nitrite Ur Leukocyte Esterase Urine RBC Urine WBC Ur Squamous Epith Cells Urine Bacteria COVID-19 ([facility]) Negative COVID-19 Clin Com See Note Assessment and Plan (1) First degree AV block: Status: Acute (2) Syncope: Status: Acute Assessment and Plan: 80-year-old female with past medical history of arthritis who presents the hospital syncopal episode. 1. syncope- unclear etiology EKG showing sinus rhythm with first-degree AV block and left anterior fascicular block,patient was also noted to have low heart rate in the 40s while on monitor orthostasis mild-encouraged for hydration ,a dded praveen stockings echo pending cardio-moniter patient on tele for today- if any arrythmias 2. arthritis - continue home his own 3. scalp laceration - secondary to the fall - status post suturing - monitor Quality Stroke Does the patient have a stroke diagnosis?: No VTE Prior VTE?: No VTE Risk Level:: Medical - low VTE Device Contraindication: Treatment Not Indicated VTE Drug Contraindication: Treatment Not Indicated
[2021-04-14 03:16] VITALS: BP 127/60; PULSE 50; RESP 16; TEMP 36.6; O2SAT 96
[2021-04-14 07:38] VITALS: BP 146/77; PULSE 55; RESP 17; TEMP 36.3; O2SAT 96
--- NOTE | 2021-04-14 07:44 | PM.DS ---
DS: Providers Provider Date of Service: 04/14/21 Date of admission: 04/12/21 20:06 Date of discharge: 04/14/21 Primary care physician: Darius Sewell PA-C Consults: 04/13/21 00:54 Consult to Cardiology Routine Consulting Provider: Ramirez Morgan Reason for consultation: syncope with bradycardia Has provider been notified: No DS: Diagnosis Discharge Diagnosis (1) First degree AV block: Status: Acute (2) Syncope: Status: Acute DS: Summary Hospital Course Hospital Course: 80-year-old female with past medical history of rheumatoid arthritis on chronic prednisone presents to the hospital with syncopal episode.? Patient reports that she woke up likely her usual, bronchus, was sitting on the kitchen table, got up to make a bagel for herself, had a strange feeling that she is going to pass out, and the next thing she remembers is finding herself on the floor.? She does not recall having any lightheadedness, no chest pain, no chest palpitations, no change in vision, no shortness of breath, no abdominal pain nausea or vomiting, no diarrhea constipation, no urinary symptoms and no lower extremity edema.? When she came about she was not confused, she did not have evidence of seizure activity.? No the mix weakness thing repair it no loss of bladder or bowel control.? She had her head on her fall. On arrival to the ED patient hemodynamically stable with vital significant for temp of 98.1?, heart rate of 62, respiratory rate of 18, blood pressure of 114/70, room air. Labs are significant for WBC count of 11.1, otherwise unremarkable.? UA negative. CT angiogram of the chest showed embolism.? Bilateral atelectasis, A CT showed no acute intracranial process, acute left frontal ethmoid and maxillary sinus inflammatory changes, mild straightening of cervical lordosis. EKG showed first-degree AV block with left anterior fascicular block. Patient underwent stitches for the laceration in her head will be admitted for further management. Hospital course: 80-year-old female who is presenting with syncope. Patient came to the hospital because of syncope episode: Patient was monitored on tele, Lab work showed hemoglobin of 12.5, WBC 8.6, platelets 236, high sensitivity troponin level less than 3.5 and a D-dimer of 705. This led to a CT pulmonary angiogram which did not show any pulmonary embolism. Orthostatic vital sign were mildly abnormal.?cardiac echo was done: Seems fine says as well as CT head. She had mild orthostasis on discharge was given including hydration,Maximilian stockings and the discussed about the orthostasis management in detail. Echocardiogram showed normal biventricular function without any significant valvular or pericardial pathology. Further workup outpatient cardiology may arrange their outpatient appointment including arrange 14 day Holter monitor for her. Patient has sutures in the left upper temporal area which needs to be removed [place] in a week with PCP outpatient. Thank you for allowing me to participate in the care of your patient.? Please feel free to contact me if you have any questions. Time Spent with Patient Time attestation: Total time spent providing and/or coordinating discharge services: Discharge coordination time: Greater than 30 minutes Quality: Stroke Does the patient have a stroke diagnosis?: No Physical Exam Vital Signs: Vital Signs: Last Vital Signs Temp 97.4 F 04/14/21 07:38 Pulse 55 04/14/21 07:38 Resp 17 04/14/21 07:38 BP 146/77 H 04/14/21 07:38 Pulse Ox 96 04/14/21 07:38 Body Mass Index 23.3 Appearance: Alert.? Oriented X3.? not in distress.? Eyes: Pupils equal, round and reactive to light.? Sclera nonicteric.? ENT: Pharynx normal.? Moist mucous membranes. cvs: rrr, [id number] , no murmur res: clear to auscultation ,no rhonchii or wheezing abd: no rebound or guarding ,nt, bs present. ext pulses present , no cyanosis ,Gait well balanced well coordinated. neuro: axo3 , nonfocal. skin:has 3-4 staple in left upper parietal area- dry,no swelling or bruising or any pain. Discharge Plan Discharge Patient Disposition: Home, Self-Care Discharge Diagnosis: syncope ,? mild orthostasis Referrals: Darius Sewell PA-C [Primary Care Provider] - 1 Week Discharge Medications: Continued multivitamin Tablet 1 tab PO DAILY RF: 0 aspirin 81 mg Tablet,Delayed Release (Dr/Ec) 81 mg PO DAILY RF: 0 ascorbic acid (vitamin C) [Vitamin C] 500 mg Tablet 500 mg PO DAILY RF: 0 cholecalciferol (vitamin D3) [Vitamin D3] 25 mcg (1,000 unit) Tablet 25 mcg PO DAILY RF: 0 omega [id number] oil [Fish Oil] 1,000 mg (120 mg-180 mg) Capsule 1 cap PO DAILY RF: 0 prednisone 1 mg tablet 1 mg PO DAILY RF: 0 Discharge Orders: Discharge Order (Routine); Ordered 04/14/21 Ordered By: Jana Acosta Diet: low fat, low cholesterol and low salt diet Activity on Discharge: As tolerated Stand Alone Forms: Patient Portal Discharge page Care Plan Goals: Patient came to the hospital because of syncope episode: Patient was monitored on tele, cardiac echo was done: Seems fine says as well as CT head. carotid dupplex also seems fine. She had mild orthostasis on discharge was given Maximilian stockings and the discussed about the orthostasis management in detail. Patient has small thyroid nodule: Please check TSH and further workup out patiently with PCP. Further workup outpatient cardiology may arrange their outpatient appointment. Health Concerns: As above. Plan of Treatment: As above. Assessment: As above. Discharge Date/Time: 04/14/21 14:19
--- NOTE | 2021-04-14 08:43 | MHC.CM.PN ---
pt dcd home no services pt s family to transport
[2021-04-14] MEDS: Multivitamin TABLET 1 TAB PO (10:39)
[2021-04-14] MEDS: predniSONE 1 MG TABLET PO (10:39)
[2021-04-14] MEDS: Cholecalciferol (Vitamin D3) 25 MCG TABLET PO (10:39)
[2021-04-14] MEDS: 0.9 % Sodium Chloride Flush 3 ML SYRINGE IVFLUSH (10:40)
[2021-04-14] MEDS: Ascorbic Acid 500 MG TABLET PO (10:40)
[2021-04-14] MEDS: Aspirin Enteric Coated 81 MG TABLET.DR PO (10:40)
[2021-04-14 10:55] VITALS: BP 133/60; PULSE 58; RESP 18; TEMP 36.8; O2SAT 97
--- NOTE | 2021-04-14 13:15 | PM.PNCARD ---
Subjective Subjective Date of Service: 04/14/21 Interval history: Feeling fine. Mild dizziness this morning. Tele - no arrhythmia Physical Exam Vital Signs: Last Vital Signs Temp 98.3 F 04/14/21 10:55 Pulse 58 04/14/21 10:55 Resp 18 04/14/21 10:55 BP 133/60 04/14/21 10:55 Pulse Ox 97 04/14/21 10:55 Body Mass Index 23.3 GENERAL APPEARANCE: in no acute distress, pleasant. NECK: no carotid bruit, no jugular venous distention. SKIN: no suspicious lesions, warm and dry. HEART: no murmurs, regular rate and rhythm. LUNGS: clear to auscultation bilaterally. ABDOMEN: soft, nontender. EXTREMITIES: no edema. PERIPHERAL PULSES: equal. NEUROLOGIC: No gross deficits, AAO X 3 Results Labs and Meds Result diagrams: 04/13/21 06:36 04/13/21 06:36 Imaging Radiologist's impression: Impressions Carotid Doppler Study 04/14/21 10:10 IMPRESSION: 1. RIGHT: Mild to moderate atherosclerotic plaque. 0-49% right ICA stenosis. 2. LEFT: Mild to moderate atherosclerotic plaque. 0-49% left ICA stenosis. 3. In comparison with prior exam December 2014 there is no change in disease severity on the right and interval increase in disease severity on the left. Left thyroid nodules, largest measuring 2.9 x 2.2 x 2.2 cm. Follow-up thyroid recommended. Progress Note: A&P Assessment and plan (1) First degree AV block: Status: Acute (2) Syncope: Status: Acute Assessment and Plan: Pleasant 80-year-old female who presented with syncope. Telemetry has been stable. Echocardiography did not show any cardiomyopathy or valvular disease. No pulmonary embolism. Clinically stable and ambulating without any issues. For noticed to be mildly orthostatic on vital signs. I have advised her to keep herself well hydrated. We will arrange a 14 day Holter monitor for her as outpatient to rule out any significant arrhythmia or heart block. Thank you for allowing me to participate in the care of your patient. Please feel free to contact me if you have any questions. Fall Risk Details Current Medications: Current Medications Acetaminophen (Acetaminophen 325 Mg Tablet) 650 mg PO Q6H PRN PRN Reason: Pain, Mild (Pain Scale 1-3) Last Admin: 04/13/21 19:38 Dose: 650 mg Documented by: Ascorbic Acid (Ascorbic Acid 500 Mg Tablet) 500 mg PO DAILY [facility] Last Admin: 04/14/21 10:40 Dose: 500 mg Documented by: Aspirin (Aspirin Enteric Coated 81 Mg Tablet.) 81 mg PO DAILY [facility] Last Admin: 04/14/21 10:40 Dose: 81 mg Documented by: Multivitamins/Vitamin C (Multivitamin Tablet) 1 tab PO DAILY [facility] Last Admin: 04/14/21 10:39 Dose: 1 tab Documented by: Pharmacy Consult (Consult Rx Perform Med Rec) 1 each MISCELLANE ONCE PRN PRN Reason: Consult order Prednisone (Prednisone 1 Mg Tablet) 1 mg PO DAILY [facility] Last Admin: 04/14/21 10:39 Dose: 1 mg Documented by: Sodium Chloride (0.9 % Sodium Chloride Flush 3 Ml Syringe) 3 ml IVFLUSH QSHIFT [facility] Last Admin: 04/14/21 10:40 Dose: 3 ml Documented by: Vitamin D (Cholecalciferol (Vitamin D3) 25 Mcg Tablet) 25 mcg PO DAILY [facility] Last Admin: 04/14/21 10:39 Dose: 25 mcg Documented by: Time Spent With Patient Time: Total time spent is greater than 50% in coordination of care (as documented) at patient's floor/unit and/or counseling patient: Time with patient: 15 - 24 minutes Progress Note: Quality Stroke Does the patient have a stroke diagnosis?: No Procedures Date of Service Date of Service: 04/14/21
== END 2021-04-14 14:19 | disposition home or self-care (01) ==
LOC: HO.ED 19:40 → HO.EDOVER 21:04 → HO.IMC 21:20
PROVIDERS: Admitting Provider Internal Medicine; Emergency Provider Emergency Medicine; PCP Physician Assistant; Visit Provider Internal Medicine
DX: R55 Syncope and collapse (principal); S09.90XA Unspecified injury of head, initial encounter; W01.0XXA Fall on same level from slipping, tripping and stumbling without subsequent striking against object, initial encounter; Y93.G3 Activity, cooking and baking; Y92.000 Kitchen of unspecified non-institutional (private) residence as the place of occurrence of the external cause; Y99.8 Other external cause status; R51.9 Headache, unspecified; E04.1 Nontoxic single thyroid nodule; I44.0 Atrioventricular block, first degree; M35.3 Polymyalgia rheumatica; J98.11 Atelectasis; R79.9 Abnormal finding of blood chemistry, unspecified; F17.210 Nicotine dependence, cigarettes, uncomplicated; Z20.822 Contact with and (suspected) exposure to COVID-19; Z88.0 Allergy status to penicillin; Z88.6 Allergy status to analgesic agent; Z79.52 Long term (current) use of systemic steroids; Z79.82 Long term (current) use of aspirin; Z79.899 Other long term (current) drug therapy
CPT/HCPCS: 36415; 70450; 71275; 72125; 72220; 80048; 80076; 81001; 82550; 84484; 85025; 85379; 87635; 90471; 93005; 93306; 93880; 96361; 96374; 97161; 99219; 99225; 99285; Q9967

== ENCOUNTER 2021-04-19 12:43 | Outpatient (REF) | payer MEDICARE, SELFPAY ==
[2021-04-19 13:54] LABS: Estimated Average Glucose 91 mg/dL; Hemoglobin A1c % 4.8 %
[2021-04-19 13:57] LABS: Appearance Urine CLEAR; Color Urine YELLOW; Glucose Urine UA NEG (NEG); Leukocyte Esterase Urine NEG (NEG); Nitrite Urine NEG (NEG); Specific Gravity - Urine <= 1.005 (1.005-1.025); UACC Culture Trigger NO; Urine Blood 1+ (NEG); Urine Ketones NEG (NEG); Urine Protein NEG (NEG-TRACE)
[2021-04-19 14:01] LABS: Alanine Aminotransferase 13 U/L (0-31); Albumin Level 3.9 g/dL (3.5-5.0); Alkaline Phosphatase 77 U/L (39-117); Anion Gap 11 (12-20); Aspartate Amino Transferase 17 U/L (5-31); Bilirubin Total 0.5 mg/dL (0.0-1.0); Blood Urea Nitrogen 20 mg/dL (9-16); Calcium 9.9 mg/dL (8.4-10.2); Carbon Dioxide 29 mmol/L (22-29); Chloride 107 mmol/L (96-108); Cholesterol 196 mg/dL; Estimated Glomerular Filt Rate > 60; Glucose Fasting 90 mg/dL (60-99); HDL Cholesterol 46 mg/dL; LDL Cholesterol Calculated 110 mg/dl; Potassium 4.6 mmol/L (3.3-5.1); Sodium 142 mmol/L (135-145); Total Protein 7.3 g/dL (6.5-8.0); Triglycerides 203 mg/dL
[2021-04-19 14:18] LABS: Squamous Epithelial Cell Urine TRACE /LPF; WBC Urine 0 /HPF (0-4)
[2021-04-19 14:23] LABS: TSH reflex Free T4 2.77 uIU/mL (0.32-4.0)
[2021-04-19 15:10] LABS: Blood Urea Nitrogen 20 mg/dL (9-16); Estimated Glomerular Filt Rate > 60
== END 2021-04-19 12:44 | disposition home or self-care (01) ==
LOC: HO.LAB 12:43
PROVIDERS: Psychiatry & Neurology Neurology; PCP Physician Assistant; Visit Provider Physician Assistant
DX: Z13.1 Encounter for screening for diabetes mellitus (principal); Z13.220 Encounter for screening for lipoid disorders; I44.0 Atrioventricular block, first degree
CPT/HCPCS: 36415; 80053; 80061; 81001; 81003; 82565; 83036; 84443; 84520

== ENCOUNTER 2021-04-28 14:43 | Outpatient (REF) | payer MEDICARE, SELFPAY ==
--- NOTE | ~2021-04-28 | MR_ITS ---
MR BRAIN WITHOUT AND WITH CONTRAST CLINICAL INFORMATION: Seizure. COMPARISON: Head CT 04/12/2021. TECHNIQUE: Multiplanar, multisequence MRI of the brain was obtained before and after the intravenous administration of 6 mL Gadavist. FINDINGS: There is no pathologic intracranial enhancement. 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 There is no hydrocephalus, extra-axial surface collection, or herniation. The major flow voids at the skull base are preserved. There is no acute infarct on diffusion-weighted imaging. There is no intracranial hemorrhage on the gradient recalled echo acquisition. The midline structures are normal. The cerebellar tonsils are normally positioned. Chronic lacunar infarcts within the cerebellar hemispheres bilaterally and within the left smith radiata. Etat crible appearance of the basal ganglia bilaterally as the sequela of chronic hypertension. The craniocervical junction is normal. Osseous marrow signal intensity is homogenous. The visualized soft tissues are unremarkable. Complete opacification of the left maxillary sinus, anterior left ethmoid air cells, and left frontal sinus in keeping with left ostiomeatal unit obstructive pattern sinus disease. The sinuses exhibit sclerotic wall thickening as the sequela of chronic sinusitis. MR/MR head/brain wo/w con IMPRESSION: - There is no pathologic enhancement intracranially. 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 - Chronic lacunar infarcts within the cerebellar hemispheres bilaterally and within the left smith radiata. Etat crible appearance of the basal ganglia bilaterally as the sequela of chronic hypertension. - There is left ostiomeatal unit obstructive pattern sinus disease for which ENT consultation is advised.
== END 2021-04-28 14:44 | disposition home or self-care (01) ==
LOC: HO.MRI 14:43
PROVIDERS: PCP Physician Assistant; Visit Provider Psychiatry & Neurology Neurology
DX: G40.909 Epilepsy, unspecified, not intractable, without status epilepticus (principal)
CPT/HCPCS: 70553; A9585

== ENCOUNTER 2022-04-08 12:02 | Outpatient (REF) | payer MEDICARE, SELFPAY ==
[2022-04-08 13:00] LABS: Hematocrit 44.7 % (37.0-47.0); Hemoglobin 14.2 g/dl (12.0-16.0); Mean Corpuscular HGB Conc 31.8 g/dl (31.0-35.0); Mean Corpuscular Hemoglobin 30.5 pg (27.0-33.0); Mean Corpuscular Volume 96.1 fL (80.0-98.0); Mean Platelet Volume 11.9 fL (9.4-12.3); Platelet Count 230 X10*3/uL (160-400); Red Blood Count 4.65 X10*6/uL (4.20-5.50); Red Cell Distribution Width 12.7 % (11.0-16.0); White Blood Count 8.7 X10*3/uL (4.8-10.8)
[2022-04-08 13:15] LABS: Alanine Aminotransferase 13 U/L (0-31); Albumin Level 4.1 g/dL (3.5-5.0); Alkaline Phosphatase 80 U/L (39-117); Anion Gap 15 (12-20); Aspartate Amino Transferase 17 U/L (5-31); Bilirubin Total 0.5 mg/dL (0.0-1.0); Blood Urea Nitrogen 14 mg/dL (9-16); Carbon Dioxide 26 mmol/L (22-29); Chloride 104 mmol/L (96-108); Cholesterol 217 mg/dL; Estimated Glomerular Filt Rate > 60; Glucose Fasting 84 mg/dL (60-99); HDL Cholesterol 51 mg/dL; LDL Cholesterol Calculated 143 mg/dl; Potassium 4.7 mmol/L (3.3-5.1); Sodium 140 mmol/L (135-145); Total Protein 7.2 g/dL (6.5-8.0); Triglycerides 117 mg/dL
[2022-04-08 13:38] LABS: TSH reflex Free T4 2.28 uIU/mL (0.32-4.0)
== END 2022-04-08 12:03 | disposition home or self-care (01) ==
LOC: HO.LAB 12:02
PROVIDERS: PCP Physician Assistant; Visit Provider Physician Assistant
DX: Z13.1 Encounter for screening for diabetes mellitus (principal); Z13.220 Encounter for screening for lipoid disorders; G40.909 Epilepsy, unspecified, not intractable, without status epilepticus
CPT/HCPCS: 36415; 80053; 80061; 84443; 85027

== ENCOUNTER 2023-04-10 13:20 | Outpatient (AMB) | payer MEDICARE, SELFPAY ==
--- NOTE | 2023-04-10 13:23 | MHC.PC.OV ---
Vital Signs 04/10/23 13:28 Height 5 ft 5 in Weight 146 lb 4 oz BMI 24.3 BP 128/82 Blood Pressure Location Lt brachial Position Sitting Respiration 17 Pulse 80 Pulse Source Pulse Oximeter Pulse Oximetry (%) 95 Oxygen Delivery Method Room Air Intake Visit Reasons: PE Intake Note: Patient is here today for a physical. 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 Anti-Embolism Stocking) As directed lamotrigine 25 mg PO BID multivitamin 1 tab PO DAILY omega 2-qlq-zxg-fish oil 1,000 mg (120 mg-180 mg) (Fish Oil) 1 cap PO DAILY Tobacco use date assessed: 04/10/23 Fall risk assessment: No Falls in past year Last assessed Fall Risk: 04/10/23 Dental Screening Dental Screen Date: 04/10/23 Did you have a dental visit in the last 12 months?: Yes Did you have a dental problem in the last 6 months where you did not have access to dental care?: No Was dental information given to patient?: Patient has dentist HPI PE HPI Details PATIENT IS AN 82-YEAR-OLD FEMALE HERE TODAY for routine annual physical. Patient has a past medical history significant for seizure disorder, tobacco dependence . . Seizure disorder: Continues on lamotrigine with good effect on reducing seizures. Has follow-up with Neurology advised to continue lamotrigine. She follows neurology on annual basis. Has no further syncopal episodes seizure activity. .. Tobacco dependency: Patient does understand she needs to quit smoking and has found it very difficult to do so. Has tried nicotine gum though was not effective. Offered to prescribe her nicotine patches though she declines. She will work on reducing her smoking on her own. We discussed lung cancer screening though she has aged as now she is 81 years of age. Vaccines: Up-to-date with COVID vaccine, UTD flu vaccine, UTD with PVC . Laboratory Tests 04/08/22 12:29 Cholesterol 217 LDL Cholesterol, C alc 143 [facility] Medical History Adrenal gland cyst Rheumatoid arthritis Arthritis Surgical History Hx of cholecystectomy Hx of appendectomy Family History Mother Coronary artery disease Myocardial infarction Social History Housing: House Alcohol intake: current Alcohol intake frequency: a few times a month Alcohol type: wine Patient Tobacco Use Status: Current everyday Tobacco user Tobacco use type: Cigarette Cigarette Packs Per Day: 0.5 Cigarettes Per Day: 10.0 Years Smoked: 50 years e-Cigarette/Vaping Use: Never Used Second Hand Smoke Exposure: Yes Advance Directives Date on File: 04/12/21 service: No Current occupational status: retired Cognitive needs: No Hearing needs: No Vision needs: Yes Questionnaire PHQ-9 Over the last 2 weeks, how often have you been bothered by any of the following problems? 1. Little interest or pleasure in doing things: not at all 2. Feeling down, depressed, or hopeless: not at all 3. Trouble falling or staying asleep, or sleeping too much: not at all 4. Feeling tired or having little energy: not at all 5. Poor appetite or overeating: not at all 6. Feeling bad about yourself - or that you are a failure or have let yourself or your family down: not at all 7. Trouble concentrating on things, such as reading the newspaper or watching television: not at all 8. Moving or speaking so slowly that other people could have noticed. Or the opposite - being so fidgety or restless that you have been moving around a lot more than usual: not at all 9. Thoughts that you would be better off or of hurting yourself in some way: not at all Total score: 0 Depression Screening Interpretation: Negative 96325 - PHQ-9 Billing: Yes Source: Developed by Drs. Sanjay Luna, Mirlande Goncalves, Braulio Garcia and colleagues, with an educational nasreen from [employer]. Thrive Questionnaire Date Thrive assessed: 04/05/22 AUDIT C Alcohol Use Questionnaire (AUDIT-C) 1. How often do you have a drink containing alcohol?: Monthly or less 2. How many drinks containing alcohol do you have on a typical day when you are drinking?: 1 or 2 3. How often do you have six or more drinks on one occasion?: Never Total Score: 1 MADHAV-7 AMB Questionnaire MADHAV-7 Date MADHAV - 7 assessed: 04/10/23 Feeling nervous, anxious, or on edge: 0 = Not at all Not being able to stop or control worryin = Not at all Worrying too much about different things: 0 = Not at all Trouble relaxin = Not at all Being so restless that it is hard to sit still: 0 = Not at all Becoming easily annoyed or irritable: 0 = Not at all Feeling afraid as if something awful might happen: 0 = Not at all Total MADHAV-7 score (0-4 normal; 5-9 mild; 10-14 moderate; 15-21 severe): 0 Source: Developed by Drs. Sanjay Luna, Mirlande Goncalves, Braulio Garcia and colleagues, with an educational nasreen from [employer]. MADHAV-7 Assessment Billing MADHAV-7 Assessment Tool: MADHAV-7 Assessment 50258 Review of Systems Const Denies body aches, Denies chills, Denies excessive sweating, Denies fatigue, Denies fever(s) and Denies headache(s) Eyes Denies blurry vision ENT Denies dysphagia, Denies vertigo, Denies dizziness, Denies headache(s), Denies hearing loss and Denies tinnitus Card Denies chest pain, Denies chest pain with activity, Denies syncope, Denies irregular heart rhythm and Denies dyspnea Resp Denies chest congestion, Denies cough, Denies hemoptysis, Denies dyspnea and Denies wheezing GI Denies abdominal pain, Denies melena, Denies hematochezia, Denies coffee ground emesis, Denies dysphagia, Denies diarrhea, Denies nausea and Denies vomiting Denies urinary frequency, Denies dysuria, Denies urinary hesitancy and Denies urinary urgency Musc Denies arthralgias, Denies limited range of motion, Denies muscle cramps and Denies muscle weakness Skin/Breast Denies rash and Denies skin ulcer Neuro Denies Abnormal speech present, Denies confusion, Denies vertigo, Denies dizziness, Denies syncope, Denies headache(s), Denies memory loss and Denies seizure-like activity Psych Denies anxiety, Denies confusion, Denies depression, Denies memory loss, Denies panic attacks and Denies paranoia Endo Denies excessive sweating, Denies fatigue, Denies flushing, Denies polydipsia and Denies polyuria Aller/Immun Denies wheezing Physical exam (Primary Care) Vital Signs: Last Vital Signs Pulse 80 04/10/23 13:28 Resp 17 04/10/23 13:28 BP 128/82 04/10/23 13:28 Pulse Ox 95 04/10/23 13:28 Oxygen Delivery Method Room Air 04/10/23 13:28 BMI result Body Mass Index 24.3 Tobacco/Smoking Status: Tobacco use Status Tobacco use date assessed 04/10/23 04/10/23 13:28 Patient Tobacco Use Status Current everyday Tobacco 04/10/23 13:23 Tobacco use type Cigarette 04/10/23 13:23 e-Cigarette/Vaping Use Never Used 04/10/23 13:23 PHQ-9: PHQ-9 Score PHQ-9: Total score 0 04/10/23 13:35 Depression Screening Interpretation: Negative Thrive Assessment: Date of Thrive Assessment Date Thrive assessed 04/05/22 04/10/23 13:23 Const General: cooperative, comfortable, no acute distress, alert and awake; No confusion Orientation/consciousness: oriented to person, oriented to place, patient oriented x3 and No confusion HENMT Head: Yes normocephalic Ears: external ears normal and TM's normal bilaterally Face and sinus: No sinus tenderness Mouth: Normal oral and palatal mucosa present and tongue normal Teeth and gingiva: dentition normal and gingiva normal Throat: Yes posterior oropharynx normal, Yes tonsils normal and Yes uvula midline Eyes Conjunctivae: conjunctivae normal Sclerae: sclerae normal Pupils: Equal, round and reactive pupils present EOM: EOMs intact bilaterally Direct Ophthalmoscopy: No no photophobia Neck Neck: Yes no lymphadenopathy, No tender and Yes no JVD Thyroid: Thyroid normal Carotids: no bruits Chest Chest palpation & inspection: no tenderness Resp Effort & Inspection: normal respiratory effort, no audible wheezes, not labored and no stridor Auscultation: no crackles, no rales, no rhonchi and no wheezes Cardio Jugular venous distension: no JVD Rate: regular rate, not bradycardic and not tachycardic Rhythm: regular rhythm Bruits: no carotid bruits Peripheral pulses: Peripheral pulses 2+ throughout GI Inspection: Yes normal to inspection, No abdominal wall ecchymosis and No visible herniation Palpation (GI): Soft to palpation, nontender, no guarding, not rigid and No hepatosplenomegaly present Auscultation: normoactive bowel sounds General: Yes no CVA tenderness Back/Spine/Pelvis Back: no CVA tenderness and No back tenderness Cervical Spine: cervical ROM normal Thoracic/Lumbar Spine: thoracic and lumbar spine normal to inspection, straight leg raise negative bilaterally, No thoraco-lumbar ROM limited and No lumbar spinal tenderness Skin Lesions: no lesions Rashes: no rashes Wounds: no wounds Neuro General: oriented to person, oriented to place, patient oriented x3, CN's II-XI intact bilaterally and No confusion Cranial nerves: Yes Equal, round and reactive pupils present and Yes Normal accommodation reflex present Cognition (Neuro): normal cognition Speech: No Abnormal speech present Gait exam (Neuro): Normal gait present Motor exam (neuro): 5/5 motor strength present throughout Extrem Right upper extremity: full ROM; no cyanosis Left upper extremity: full ROM; no cyanosis Right lower extremity: no edema Left lower extremity: no edema Psych Appearance: grossly normal Mental Status: mental status grossly normal Affect: normal affect Attitude: cooperative Thought process: Normal thought process present Office Procedures Flu Questionnaire Does the patient have a severe egg allergy?: No Does the patient have severe life threatening allergies?: No Does the patient have a fever or illness today?: No Has the patient ever had Guillain-Newnan Syndrome?: No Has the patient ever had any past reaction to a flu shot?: No Immunizations flu vacc [id number] 6mos up(PF) 60 mcg(15 mcgx4)/0.5 mL IM syringe Performing Provider: Darius Sewell PA-C [facility] Administered by: AROLDO Perdomo on 04/10/23 13:38 Dose Route Admin Location Dispensed Lot Number Expiration Date NDC Infrastructure Architect 0.5 mL IM Left Deltoid 0.5 mL [id number] 01/07/24 20110-289-20 [employer] VIS Given Date VIS Provided VIS Publication Date 04/10/23 Single Vaccine 21 Eligibility Eligibility Date Funding Source Not [facility] Eligible 04/10/23 Private Assessment and Plan Assessment & Plan (1) Annual physical exam: Code(s): Z00.00 - Encounter for general adult medical examination without abnormal findings (2) Tobacco dependence: Code(s): F17.200 - Nicotine dependence, unspecified, uncomplicated Plan: Patient does understand she should quit smoking though has found a very difficult. She does have nicotine patches available to her. (3) Seizure disorder: Code(s): G40.909 - Epilepsy, unspecified, not intractable, without status epilepticus Plan: Patient now is a seizure free over the last 6 months. Continues on lamotrigine 25 mg without any side effect. She does live with her daughter whom keeps an eye on her. Otherwise she is very independent. (4) Borderline high cholesterol: Code(s): E78.9 - Disorder of lipoprotein metabolism, unspecified Plan: Most recent fasting lipid panel showing borderline high total cholesterol. Will continue to follow fasting lipid panel. (5) Varicella vaccination status unknown: Code(s): Z78.9 - Other specified health status Plan: Unknown if ever had varicella infection. Will check IgG Orders: Orders Influenza [id number] Immunization Today Z23 - Encounter for immunization Comprehensive [place]. Panel Fast Today I10 - Essential (primary) hypertension Microalbumin, Random (w Creat) Today I10 - Essential (primary) hypertension Lamotrigine Lamictal Today G40.909 - Epilepsy, unspecified, not intractable, without status epilepticus Lipid Panel Today E78.9 - Disorder of lipoprotein metabolism, unspecified Varicella IgG Antibody Today Z78.9 - Other specified health status Coding Level of Care Code Est Pt Prev Care >65y(80332) Diagnoses Annual physical exam Z00.00 Tobacco dependence F17.200 Seizure disorder G40.909 Borderline high cholesterol E78.9 Varicella vaccination status unknown Z78.9 Additional Codes MADHAV-7 Assessment Billing - MADHAV-7 Assessment Tool: MADHAV-7 Assessment 92947 ([id number])
[2023-04-10 13:28] VITALS: BP 128/82; PULSE 80; RESP 17; O2SAT 95; BMI 24.3
== END 2023-04-10 13:59 | disposition home or self-care (01) ==
PROVIDERS: Visit Provider Physician Assistant
DX: Z00.00 Encounter for general adult medical examination without abnormal findings (principal); F17.210 Nicotine dependence, cigarettes, uncomplicated; G40.909 Epilepsy, unspecified, not intractable, without status epilepticus; E78.9 Disorder of lipoprotein metabolism, unspecified; Z78.9 Other specified health status; Z23 Encounter for immunization
CPT/HCPCS: 90471; 90686; 99397

== ENCOUNTER 2023-04-17 13:28 | Outpatient (REF) | payer MEDICARE, SELFPAY ==
[2023-04-20 10:29] LABS: Lamotrigine Lamictal 1.3 mcg/mL (2.5-15.0)
== END 2023-04-17 13:29 | disposition home or self-care (01) ==
LOC: HO.LAB 13:28
PROVIDERS: PCP Physician Assistant; Visit Provider Physician Assistant
DX: I10 Essential (primary) hypertension (principal); G40.909 Epilepsy, unspecified, not intractable, without status epilepticus; E78.9 Disorder of lipoprotein metabolism, unspecified; Z78.9 Other specified health status; Z79.899 Other long term (current) drug therapy
CPT/HCPCS: 36415; 80053; 80061; 80175; 82043; 82570; 86787

== ENCOUNTER 2023-04-21 10:09 | Outpatient (REF) | payer MEDICARE, SELFPAY ==
[2023-04-21 12:15] LABS: Anion Gap 14 (12-20); Blood Urea Nitrogen 13 mg/dL (9-16); Calcium 10.3 mg/dL (8.4-10.2); Carbon Dioxide 25 mmol/L (22-29); Chloride 108 mmol/L (96-108); Estimated Glomerular Filt Rate > 60; Glucose Random 91 mg/dL (60-115); Potassium 5.1 mmol/L (3.3-5.1); Sodium 142 mmol/L (135-145)
[2023-04-21 13:14] LABS: Creatinine Urine 92.24 mg/dL; Microalbum/Creatinine Ratio Ur 6.5 ug/mg cr (<30)
== END 2023-04-21 10:10 | disposition home or self-care (01) ==
LOC: HO.LAB 10:09
PROVIDERS: PCP Physician Assistant; Visit Provider Physician Assistant
DX: I10 Essential (primary) hypertension (principal); E87.5 Hyperkalemia; E83.52 Hypercalcemia
CPT/HCPCS: 36415; 80048; 82043; 82570

== ENCOUNTER 2024-01-04 11:19 | Emergency (ER) | payer MEDICARE, SELFPAY ==
[2024-01-04 11:23] VITALS: BP 145/93; PULSE 78; RESP 16; TEMP 36.9; O2SAT 95; BMI 25.0
--- NOTE | 2024-01-04 11:25 | ED_ITS ---
HPI - General Adult General Chief complaint: Animal Bite Stated complaint: Lips and l ring finger swelling bee sting 2x days Related Data Home Medications ?Medication ?Instructions ?Recorded ?Confirmed ascorbic acid (vitamin C) 500 mg 500 mg PO DAILY 04/12/21 04/10/23 tablet (Vitamin C) cholecalciferol (vitamin D3) 25 25 mcg PO DAILY 04/12/21 04/10/23 mcg (1,000 unit) tablet (Vitamin D3) multivitamin 1 tab PO DAILY 04/12/21 04/05/22 omega 6-tyr-jxm-fish oil 1,000 mg 1 cap PO DAILY 04/12/21 04/10/23 (120 mg-180 mg) capsule (Fish Oil) lamotrigine 25 mg tablet 25 mg PO BID 04/05/22 04/10/23 Previous Rx's ?Medication ?Instructions ?Recorded nela.stocking,knee,reg,smal #2 ea 04/14/21 (T.E.D. Anti-Embolism Stocking) blood pressure monitor #1 ea 04/19/21 blood pressure test kit-large #1 ea 05/17/21 Allergies Allergy/AdvReac Type Severity Reaction Status Date / Time codeine [CODEINE] Allergy Intermediate BUMPS IN Verified 01/04/24 11:24 MOUTH Penicillins [PENICILLINS] Allergy Intermediate mouth sores Verified 01/04/24 11:24 [facility] Past Medical History Medical History Adrenal gland cyst Rheumatoid arthritis Arthritis Surgical History Hx of cholecystectomy Hx of appendectomy Family History Family History Mother Coronary artery disease Myocardial infarction Social History Social History Housing: House Alcohol intake: current Alcohol intake frequency: a few times a month Alcohol type: wine Patient Tobacco Use Status: Current everyday Tobacco user Tobacco use type: Cigarette Cigarette Packs Per Day: 0.5 Cigarettes Per Day: 10.0 Years Smoked: 50 years e-Cigarette/Vaping Use: Never Used Second Hand Smoke Exposure: Yes Advance Directives: Yes Advance Directives on File: Yes Advance Directives Date on File: 04/12/21 service: No Current occupational status: retired Cognitive needs: No Hearing needs: No Vision needs: Yes Physical Exam ED Vital Signs: BMI result Body Mass Index 25.0 Course Course Course Narrative: This is an RME: Additional HPI, ROS, PE not included below will be deferred to primary provider. RME assessment and note performed by: Rajni Baez PA-C This is a 26-yk[age]znr-female, with a hx of TIA and seizure disorder, who presents to the ER with complaints of left fourth finger swelling and lip swelling after being stung by a bee 2-3 days ago. Edema noted to the left upper lip and swelling noted to the left digit, likely will need to have ring cut off. She is speaking in full sentences, lungs clear to auscultation. No respiratory distress. Plan: Further ER evaluation needed. Reevaluation(s) Reevaluation #1: Patient left without completing treatment. Discharge Plan Discharge Clinical Impression: Bee sting Patient Disposition: Left W/O Completing Treatment Prescriptions: No Action multivitamin Tablet 1 tab PO DAILY ascorbic acid (vitamin C) [Vitamin C] 500 mg Tablet 500 mg PO DAILY cholecalciferol (vitamin D3) [Vitamin D3] 25 mcg (1,000 unit) Tablet 25 mcg PO DAILY omega 3-frs-biu-fish oil [Fish Oil] 1,000 mg (120 mg-180 mg) Capsule 1 cap PO DAILY (DME) T.E.D. Anti-Embolism Stocking Misc See Rx Instructions .Route Qty: 2 0RF Rx Instructions: As directed lamotrigine 25 mg tablet 25 mg PO BID (DME) blood pressure monitor Kit See Rx Instructions .Route Qty: 1 0RF Rx Instructions: As directed (DME) blood pressure test kit-large Kit See Rx Instructions .Route Qty: 1 0RF Rx Instructions: As directed Discharge Date/Time: 01/04/24 11:50
== END 2024-01-04 11:50 | disposition left against medical advice (07) ==
PROVIDERS: Emergency Provider Emergency Medicine; PCP Physician Assistant
DX: T63.441A Toxic effect of venom of bees, accidental (unintentional), initial encounter (principal); R60.0 Localized edema; Y92.9 Unspecified place or not applicable; Z53.21 Procedure and treatment not carried out due to patient leaving prior to being seen by health care provider
CPT/HCPCS: 99281

== ENCOUNTER 2024-04-15 13:36 | Outpatient (AMB) | payer MEDICARE, SELFPAY ==
--- NOTE | 2024-04-15 13:37 | A.OFFPC_ITS ---
Vital Signs 04/15/24 13:39 Height 5 ft 5 in Weight 147 lb BMI 24.5 BP 112/60 Blood Pressure Location Lt brachial Position Sitting Pulse 64 Pulse Source Pulse Oximeter Pulse Oximetry (%) 95 Oxygen Delivery Method Room Air Intake Visit Reasons: Annual exam Intake Note: Patient is here today for a physical. 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 Anti-Embolism Stocking) As directed lamotrigine 25 mg PO BID multivitamin 1 tab PO DAILY omega 1-lnw-fys-fish oil 1,000 mg (120 mg-180 mg) (Fish Oil) 1 cap PO DAILY Tobacco use date assessed: 04/15/24 Fall risk assessment: No Falls in past year Last assessed Fall Risk: 04/15/24 Dental Screening Dental Screen Date: 04/15/24 Did you have a dental visit in the last 12 months?: Yes Did you have a dental problem in the last 6 months where you did not have access to dental care?: No Was dental information given to patient?: Patient has dentist HPI Annual exam HPI Details PATIENT IS AN 83-YEAR-OLD FEMALE HERE TODAY for routine annual physical. Patient has a past medical history significant for seizure disorder, former tobacco dependence . . Seizure disorder: Continues on lamotrigine with good effect on reducing seizures. Has follow-up with Neurology advised to continue lamotrigine. She follows neurology on annual basis. Has no further syncopal episodes seizure activity. .. Former smoker: Soledad reports she had stopped smoking over the last 6 weeks using nicotine patches. She feels proud about this and will try to continue her smoke free journey. Vaccines: Up-to-date with COVID vaccine, UTD flu vaccine, UTD with [facility] Medical History (Updated 04/16/24 @ 07:31 by Darius Sewell PA-C) First degree AV block Hypercalcemia Hyperkalemia Polymyalgia rheumatica (~04/14/21) Adrenal gland cyst Rheumatoid arthritis Arthritis Surgical History Hx of cholecystectomy Hx of appendectomy Family History Mother Coronary artery disease Myocardial infarction Social History (Updated 04/15/24 @ 13:47 by Darius Sewell PA-C) Housing: House Alcohol intake: current Alcohol intake frequency: a few times a month Alcohol type: wine Patient Tobacco Use Status: Former Tobacco user Tobacco use type: Cigarette Cigarette Packs Per Day: 0.5 Cigarettes Per Day: 10.0 Years Smoked: 50 years e-Cigarette/Vaping Use: Never Used Second Hand Smoke Exposure: Yes Advance Directives Date on File: 04/12/21 service: No Current occupational status: retired Cognitive needs: No Hearing needs: No Vision needs: Yes Questionnaire PHQ-9 Over the last 2 weeks, how often have you been bothered by any of the following problems? 1. Little interest or pleasure in doing things: not at all 2. Feeling down, depressed, or hopeless: not at all 3. Trouble falling or staying asleep, or sleeping too much: not at all 4. Feeling tired or having little energy: not at all 5. Poor appetite or overeating: not at all 6. Feeling bad about yourself - or that you are a failure or have let yourself or your family down: not at all 7. Trouble concentrating on things, such as reading the newspaper or watching television: not at all 8. Moving or speaking so slowly that other people could have noticed. Or the opposite - being so fidgety or restless that you have been moving around a lot more than usual: not at all 9. Thoughts that you would be better off or of hurting yourself in some way: not at all Total score: 0 Depression Screening Interpretation: Negative Depression Screening Done: Yes 41705 - PHQ-9 Billing: Yes Source: Developed by Drs. Sanjay Luna, Mirlande Goncalves, Braulio Garcia and colleagues, with an educational nasreen from [employer]. Thrive Questionnaire Date Thrive assessed: 04/15/24 I am a: Patient What is your living situation today?: I have a steady place to live Within the past 12 months, did the food you bought not last and you didn't have the money to get more?: Never true Within the past 12 months, did you worry whether your food would run out before you got money to buy more?: Never true Do you have trouble paying for medicines?: No Do you have trouble getting transportation to medical appointments?: No Do you have trouble paying your heating and electricity bill?: No Do you have trouble taking care of your child, family member or friend?: No Do you have trouble with day-to-day activities such as bathing, preparing meals, shopping, managing finances, etc.?: No Are you currently unemployed and looking for a job?: No Are you interested in more education?: No Please select the resources that you would like help with: None Currently or been in a relationship where the following occur: No concerns reported THRIVE Score: 0 AUDIT C Alcohol Use Questionnaire (AUDIT-C) 1. How often do you have a drink containing alcohol?: Monthly or less 2. How many drinks containing alcohol do you have on a typical day when you are drinking?: 1 or 2 3. How often do you have six or more drinks on one occasion?: Never Total Score: 1 MADHAV-7 AMB Questionnaire MADHAV-7 Date MADHAV - 7 assessed: 04/15/24 Feeling nervous, anxious, or on edge: 0 = Not at all Not being able to stop or control worryin = Not at all Worrying too much about different things: 0 = Not at all Trouble relaxin = Not at all Being so restless that it is hard to sit still: 0 = Not at all Becoming easily annoyed or irritable: 0 = Not at all Feeling afraid as if something awful might happen: 0 = Not at all Total MADHAV-7 score (0-4 normal; 5-9 mild; 10-14 moderate; 15-21 severe): 0 Source: Developed by Drs. Sanjay Luna, Mirlande Goncalves, Braulio Garcia and colleagues, with an educational nasreen from [employer]. MADHAV-7 Assessment Billing MADHAV-7 Assessment Tool: MADHAV-7 Assessment 33900 Review of Systems Const Denies body aches, Denies chills, Denies excessive sweating, Denies fatigue, Denies fever(s) and Denies headache(s) Eyes Denies blurry vision ENT Denies dysphagia, Denies vertigo, Denies dizziness, Denies headache(s), Denies hearing loss and Denies tinnitus Card Denies chest pain, Denies chest pain with activity, Denies syncope, Denies irregular heart rhythm and Denies dyspnea Resp Denies chest congestion, Denies cough, Denies hemoptysis, Denies dyspnea and Denies wheezing GI Denies abdominal pain, Denies melena, Denies hematochezia, Denies coffee ground emesis, Denies dysphagia, Denies diarrhea, Denies nausea and Denies vomiting Denies urinary frequency, Denies dysuria, Denies urinary hesitancy and Denies urinary urgency Musc Denies arthralgias, Denies limited range of motion, Denies muscle cramps and Denies muscle weakness Skin/Breast Denies rash and Denies skin ulcer Neuro Denies Abnormal speech present, Denies confusion, Denies vertigo, Denies dizziness, Denies syncope, Denies headache(s), Denies memory loss and Denies seizure-like activity Psych Denies anxiety, Denies confusion, Denies depression, Denies memory loss, Denies panic attacks and Denies paranoia Endo Denies excessive sweating, Denies fatigue, Denies flushing, Denies polydipsia and Denies polyuria Aller/Immun Denies wheezing Physical exam (Primary Care) Vital Signs: Last Vital Signs Pulse 64 04/15/24 13:39 BP 112/60 04/15/24 13:39 Pulse Ox 95 04/15/24 13:39 Oxygen Delivery Method Room Air 04/15/24 13:39 BMI result Body Mass Index 24.5 Tobacco/Smoking Status: Tobacco use Status Tobacco use date assessed 04/15/24 04/15/24 13:42 Patient Tobacco Use Status Former Tobacco user 04/15/24 13:47 Tobacco use type Cigarette 04/15/24 13:47 e-Cigarette/Vaping Use Never Used 04/15/24 13:47 PHQ-9: PHQ-9 Score PHQ-9: Total score 0 04/15/24 14:04 Depression Screening Interpretation: Negative Thrive Assessment: Date of Thrive Assessment Date Thrive assessed 04/15/24 04/15/24 13:42 Currently or been in a relationship where the following occur: No concerns reported Const General: cooperative, comfortable, no acute distress, alert and awake; No confusion Orientation/consciousness: oriented to person, oriented to place, patient oriented x3 and No confusion HENMT Head: Yes normocephalic Ears: external ears normal and TM's normal bilaterally Face and sinus: No sinus tenderness Mouth: Normal oral and palatal mucosa present and tongue normal Teeth and gingiva: dentition normal and gingiva normal Throat: Yes posterior oropharynx normal, Yes tonsils normal and Yes uvula midline Eyes Conjunctivae: conjunctivae normal Sclerae: sclerae normal Pupils: Equal, round and reactive pupils present EOM: EOMs intact bilaterally Direct Ophthalmoscopy: No no photophobia Neck Neck: Yes no lymphadenopathy, No tender and Yes no JVD Thyroid: Thyroid normal Carotids: no bruits Chest Chest palpation & inspection: no tenderness Resp Effort & Inspection: normal respiratory effort, no audible wheezes, not labored and no stridor Auscultation: no crackles, no rales, no rhonchi and no wheezes Cardio Jugular venous distension: no JVD Rate: regular rate, not bradycardic and not tachycardic Rhythm: regular rhythm Bruits: no carotid bruits Peripheral pulses: Peripheral pulses 2+ throughout GI Inspection: Yes normal to inspection, No abdominal wall ecchymosis and No visible herniation Palpation (GI): Soft to palpation, nontender, no guarding, not rigid and No hepatosplenomegaly present Auscultation: normoactive bowel sounds General: Yes no CVA tenderness Back/Spine/Pelvis Back: no CVA tenderness and No back tenderness Cervical Spine: cervical ROM normal Thoracic/Lumbar Spine: thoracic and lumbar spine normal to inspection, straight leg raise negative bilaterally, No thoraco-lumbar ROM limited and No lumbar spinal tenderness Skin Lesions: no lesions Rashes: no rashes Wounds: no wounds Neuro General: oriented to person, oriented to place, patient oriented x3, CN's II-XI intact bilaterally and No confusion Cranial nerves: Yes Equal, round and reactive pupils present and Yes Normal accommodation reflex present Cognition (Neuro): normal cognition Speech: No Abnormal speech present Gait exam (Neuro): Normal gait present Motor exam (neuro): 5/5 motor strength present throughout Extrem Right upper extremity: full ROM; no cyanosis Left upper extremity: full ROM; no cyanosis Right lower extremity: no edema Left lower extremity: no edema Psych Appearance: grossly normal Mental Status: mental status grossly normal Affect: normal affect Attitude: cooperative Thought process: Normal thought process present Office Procedures Flu Questionnaire Does the patient have a severe egg allergy?: No Does the patient have severe life threatening allergies?: No Does the patient have a fever or illness today?: No Has the patient ever had Guillain-Onsted Syndrome?: No Has the patient ever had any past reaction to a flu shot?: No Immunizations Fluarix Triv [id number] (PF) 45 mcg (15 mcg x 3)/0.5 mL IM syringe Performing Provider: Darius Sewell PA-C [place] [facility] [place] [facility] Administered by: AROLDO Perdomo on 04/15/24 14:05 Dose Route Admin Location Dispensed Lot Number Expiration Date [facility] Awning Installer 0.5 mL IM Left Deltoid 0.5 mL [id number] 01/06/25 [id number] [employer] VIS Given Date VIS Provided VIS Publication Date 04/15/24 Single Vaccine 21 Eligibility Eligibility Date Funding Source Not [facility] Eligible 04/15/24 Private Coding Level of Care Code Est Pt Prev Care >65y(01129) Diagnoses Annual physical exam Z00.00 Seizure disorder G40.909 Primary hypertension I10 Hypertension type: primary hypertension Former smoker Z87.891 Additional Codes MADHAV-7 Assessment Billing - MADHAV-7 Assessment Tool: MADHAV-7 Assessment 30466 ([id number]) Assessment & Plan Assessment & Plan (1) Annual physical exam: Code(s): Z00.00 - Encounter for general adult medical examination without abnormal findings Category: Medical Plan: As per HPI (2) Seizure disorder: Code(s): G40.909 - Epilepsy, unspecified, not intractable, without status epilepticus Category: Medical Plan: Patient continues on Lamictal 25 mg and has not had any seizures. Has stopped following up in Neurology. Will continue on her current dose of Lamictal for now. (3) HTN (hypertension): Code(s): I10 - Essential (primary) hypertension Category: Medical Qualifiers: Hypertension type: primary hypertension Qualified Code(s): I10 - Essential (primary) hypertension Plan: Patient's blood pressure acceptable today in office. She takes supplements [id number](Garlique) which she feels is helping her blood pressure. Goal blood pressure to remain below 40/90 (4) Former smoker: Code(s): Z87.891 - Personal history of nicotine dependence Category: Social Hx Plan: Soledad reports she has stopped smoking cigarettes over last 6 weeks by using patches. She is proud of this and will continue to try to stay away from cigarette smoking. Orders: Orders Microalbumin, Random (w Creat) 04/15/24 I10 - Essential (primary) hypertension Comprehensive [place]. Panel Fast 04/15/24 E78.9 - Disorder of lipoprotein metabolism, unspecified Complete Blood Count no Diff 04/15/24 E78.9 - Disorder of lipoprotein metabolism, unspecified Influenza [id number] Immunization 04/15/24 Z23 - Encounter for immunization Lipid Panel 04/15/24 E78.9 - Disorder of lipoprotein metabolism, unspecified Medications: Discontinued nela.stocking,knee,reg,smal (T.E.D. Anti-Embolism Stocking) Discontinued Reason: Doctor's Order As directed 2 ea 0RF I95.1 - Orthostatic hypotension Patient Instructions: Goal: Blood pressure to remain below 140/90 Barriers: Adherence to physical activity and healthy eating habits
[2024-04-15 13:39] VITALS: BP 112/60; PULSE 64; O2SAT 95; BMI 24.5
== END 2024-04-15 14:07 | disposition home or self-care (01) ==
PROVIDERS: PCP Physician Assistant; Visit Provider Physician Assistant
DX: Z00.00 Encounter for general adult medical examination without abnormal findings (principal); G40.909 Epilepsy, unspecified, not intractable, without status epilepticus; I10 Essential (primary) hypertension; Z87.891 Personal history of nicotine dependence

== ENCOUNTER → 2024-04-15 13:36 | Outpatient (BNVA) | payer MEDICARE, SELFPAY | PROVIDERS: PCP Physician Assistant; Visit Provider Physician Assistant | DX: Z00.01 Encounter for general adult medical examination with abnormal findings (principal); Z23 Encounter for immunization; G40.909 Epilepsy, unspecified, not intractable, without status epilepticus; I10 Essential (primary) hypertension; Z87.891 Personal history of nicotine dependence | CPT/HCPCS: 90471; 90656; 96127; 99397 ==

== ENCOUNTER 2024-04-30 11:44 | Outpatient (REF) | payer MEDICARE, SELFPAY ==
[2024-04-30 12:41] LABS: Hematocrit 43.4 % (37.0-47.0); Hemoglobin 14.3 g/dl (12.0-16.0); Mean Corpuscular HGB Conc 32.9 g/dl (31.0-35.0); Mean Corpuscular Hemoglobin 30.4 pg (27.0-33.0); Mean Corpuscular Volume 92.3 fL (80.0-98.0); Mean Platelet Volume 11.7 fL (9.4-12.3); Platelet Count 273 X10*3/uL (160-400); Red Cell Distribution Width 12.4 % (11.0-16.0); White Blood Count 7.7 X10*3/uL (4.8-10.8)
[2024-04-30 13:05] LABS: Creatinine Urine 143.27 mg/dL; Microalbum/Creatinine Ratio Ur 6.2 ug/mg cr (<30)
[2024-04-30 13:09] LABS: Alanine Aminotransferase 9 U/L (0-31); Albumin Level 3.7 g/dL (3.5-5.0); Alkaline Phosphatase 75 U/L (39-117); Anion Gap 12 (12-20); Aspartate Amino Transferase 21 U/L (5-31); Bilirubin Total 0.7 mg/dL (0.0-1.0); Blood Urea Nitrogen 16 mg/dL (9-16); Calcium 9.8 mg/dL (8.4-10.2); Carbon Dioxide 24 mmol/L (22-29); Chloride 111 mmol/L (96-108); Cholesterol 205 mg/dL (<200); Estimated Glomerular Filt Rate > 60; Glucose Fasting 81 mg/dL (60-99); HDL Cholesterol 53 mg/dL (>40); LDL Cholesterol Calculated 133 mg/dL (<100); Potassium 3.8 mmol/L (3.3-5.1); Sodium 143 mmol/L (135-145); Total Protein 6.9 g/dL (6.5-8.0); Triglycerides 98 mg/dL (<150)
== END 2024-04-30 11:45 | disposition home or self-care (01) ==
LOC: HO.LAB 11:44
PROVIDERS: PCP Physician Assistant; Visit Provider Physician Assistant
DX: E78.9 Disorder of lipoprotein metabolism, unspecified (principal); I10 Essential (primary) hypertension
CPT/HCPCS: 36415; 80053; 80061; 82043; 82570; 85027

== ENCOUNTER 2025-04-15 15:07 | Outpatient (AMB) | payer MEDICARE, SELFPAY ==
--- NOTE | 2025-04-15 15:34 | MHC.PC.OV ---
Vital Signs 04/15/25 15:35 Height 5 ft 5 in Weight 137 lb 6 oz BMI 22.9 BP 110/60 Blood Pressure Location Lt brachial Position Sitting Pulse 67 Pulse Source Pulse Oximeter Temp 97.3 F Temp Source Temporal Artery Scan Pulse Oximetry (%) 94 Oxygen Delivery Method Room Air Intake Visit Reasons: PE - see comments Intake Note: Patient is here today for a physical. Manager City Required: No Web Content Executive: Not Required per policy Accompanied by: Self / Same As Patient Allergies codeine (CODEINE) Allergy (Intermediate, Verified 04/15/25 16:21) BUMPS IN MOUTH Penicillins (PENICILLINS) Allergy (Intermediate, Verified 04/15/25 16:21) mouth sores Medication List - Last Reconciled 04/15/25 by FRANCISCO Roy-Ravindra ascorbic acid (vitamin C) (Vitamin C) 500 mg PO DAILY cholecalciferol (vitamin D3) (Vitamin D3) 25 mcg PO DAILY lamotrigine 25 mg PO BID multivitamin 1 tab PO DAILY omega 1-jcy-tio-fish oil 1,000 (120-180) mg (Fish Oil) 1 cap PO DAILY Tobacco use date assessed: 04/15/25 Fall risk assessment: No Falls in past year Last assessed Fall Risk: 04/15/25 Dental Screening Dental Screen Date: 04/15/25 Did you have a dental visit in the last 12 months?: No Did you have a dental problem in the last 6 months where you did not have access to dental care?: No Was dental information given to patient?: Patient has dentist HPI PE - see comments HPI Details PATIENT IS AN 84-YEAR-OLD FEMALE HERE TODAY for routine annual physical. Patient has a past medical history significant for seizure disorder, former tobacco dependence . --> Socially, the patient is actively involved in caring for her brother, who has had multiple strokes. She assists with his daily activities and medication management. . Seizure disorder: Continues on lamotrigine with good effect on reducing seizures. Has follow-up with Neurology advised to continue lamotrigine. She follows neurology on annual basis. Has no further syncopal episodes seizure activity. .. Former smoker: Soledad has stopped smoking about a year ago, though does report at times takes a few puffs from a cigarette with her brother.. She feels proud about generally not smoking and will try to continue her smoke free journey. Vaccines: Up-to-date with COVID vaccine,, UTD with PVC , needs her flu vaccine Laboratory Tests 04/17/23 04/30/24 13:38 12:00 Cholesterol 234 H 205 H LDL Cholesterol, C alc 159 H 133 H PFSH Medical History (Updated 04/16/25 @ 07:38 by Darius Sewell PA-C) First degree AV block Hypercalcemia Hyperkalemia Polymyalgia rheumatica (~04/14/21) Adrenal gland cyst Rheumatoid arthritis Arthritis Surgical History Hx of cholecystectomy Hx of appendectomy Family History Mother Coronary artery disease Myocardial infarction Social History Housing: House Alcohol intake: current Alcohol intake frequency: a few times a month Alcohol type: wine Patient Tobacco Use Status: Former Tobacco user Tobacco use type: Cigarette Cigarette Packs Per Day: 0.5 Cigarettes Per Day: 10.0 Years Smoked: 50 years e-Cigarette/Vaping Use: Never Used Second Hand Smoke Exposure: Yes Advance Directives Date on File: 04/12/21 service: No Current occupational status: retired Cognitive needs: No Hearing needs: No Vision needs: Yes (Glasses) Questionnaire PHQ-9 Over the last 2 weeks, how often have you been bothered by any of the following problems? 1. Little interest or pleasure in doing things: not at all 2. Feeling down, depressed, or hopeless: not at all 3. Trouble falling or staying asleep, or sleeping too much: not at all 4. Feeling tired or having little energy: not at all 5. Poor appetite or overeating: not at all 6. Feeling bad about yourself - or that you are a failure or have let yourself or your family down: not at all 7. Trouble concentrating on things, such as reading the newspaper or watching television: not at all 8. Moving or speaking so slowly that other people could have noticed. Or the opposite - being so fidgety or restless that you have been moving around a lot more than usual: not at all 9. Thoughts that you would be better off or of hurting yourself in some way: not at all Total score: 0 Depression Screening Interpretation: Negative Depression Screening Done: Yes 37179 - PHQ-9 Billing: Yes Source: Developed by Drs. Sanjay Luna, Mirlande Goncalves, Braulio Garcia and colleagues, with an educational nasreen from [employer]. Thrive Questionnaire Date Thrive assessed: 04/15/25 I am a: Patient What is your living situation today?: I have a steady place to live Within the past 12 months, did the food you bought not last and you didn't have the money to get more?: Never true Within the past 12 months, did you worry whether your food would run out before you got money to buy more?: Never true Do you have trouble paying for medicines?: No Do you have trouble getting transportation to medical appointments?: No Do you have trouble paying your heating and electricity bill?: No Do you have trouble taking care of your child, family member or friend?: No Do you have trouble with day-to-day activities such as bathing, preparing meals, shopping, managing finances, etc.?: No Are you currently unemployed and looking for a job?: No Are you interested in more education?: No Please select the resources that you would like help with: Care for elder or disabled Currently or been in a relationship where the following occur: No concerns reported THRIVE Score: 0 AUDIT C Alcohol Use Questionnaire (AUDIT-C) 1. How often do you have a drink containing alcohol?: Monthly or less 2. How many drinks containing alcohol do you have on a typical day when you are drinking?: 1 or 2 3. How often do you have six or more drinks on one occasion?: Never Total Score: 1 MADHAV-7 AMB Questionnaire MADHAV-7 Date MADHAV - 7 assessed: 04/15/25 Feeling nervous, anxious, or on edge: 0 = Not at all Not being able to stop or control worryin = Not at all Worrying too much about different things: 0 = Not at all Trouble relaxin = Not at all Being so restless that it is hard to sit still: 0 = Not at all Becoming easily annoyed or irritable: 0 = Not at all Feeling afraid as if something awful might happen: 0 = Not at all Total MADHAV-7 score (0-4 normal; 5-9 mild; 10-14 moderate; 15-21 severe): 0 Source: Developed by Drs. Sanjay Luna, Mirlande Goncalves, Braulio Garcia and colleagues, with an educational nasreen from [employer]. MADHAV-7 Assessment Billing MADHAV-7 Assessment Tool: MADHAV-7 Assessment 17506 Review of Systems Const Denies body aches, Denies chills, Denies excessive sweating, Denies fatigue, Denies fever(s) and Denies headache(s) Eyes Denies blurry vision ENT Denies dysphagia, Denies vertigo, Denies dizziness, Denies headache(s), Denies hearing loss and Denies tinnitus Card Denies chest pain, Denies chest pain with activity, Denies syncope, Denies irregular heart rhythm and Denies dyspnea Resp Denies chest congestion, Denies cough, Denies hemoptysis, Denies dyspnea and Denies wheezing GI Denies abdominal pain, Denies melena, Denies hematochezia, Denies coffee ground emesis, Denies dysphagia, Denies diarrhea, Denies nausea and Denies vomiting Denies urinary frequency, Denies dysuria, Denies urinary hesitancy and Denies urinary urgency Musc Denies arthralgias, Denies limited range of motion, Denies muscle cramps and Denies muscle weakness Skin/Breast Denies rash and Denies skin ulcer Neuro Denies Abnormal speech present, Denies confusion, Denies vertigo, Denies dizziness, Denies syncope, Denies headache(s), Denies memory loss and Denies seizure-like activity Psych Denies anxiety, Denies confusion, Denies depression, Denies memory loss, Denies panic attacks and Denies paranoia Endo Denies excessive sweating, Denies fatigue, Denies flushing, Denies polydipsia and Denies polyuria Aller/Immun Denies wheezing Physical exam (Primary Care) Vital Signs: Last Vital Signs Temp 97.3 F 04/15/25 15:35 Pulse 67 04/15/25 15:35 BP 110/60 04/15/25 15:35 Pulse Ox 94 04/15/25 15:35 Oxygen Delivery Method Room Air 04/15/25 15:35 BMI result Body Mass Index 22.9 Tobacco/Smoking Status: Tobacco use Status Tobacco use date assessed 04/15/25 04/15/25 16:20 Patient Tobacco Use Status Former Tobacco user 04/15/25 16:20 Tobacco use type Cigarette 04/15/25 16:20 e-Cigarette/Vaping Use Never Used 04/15/25 16:20 PHQ-9: PHQ-9 Score PHQ-9: Total score 0 04/15/25 16:37 Depression Screening Interpretation: Negative Thrive Assessment: Date of Thrive Assessment Date Thrive assessed 04/15/25 04/15/25 16:20 Currently or been in a relationship where the following occur: No concerns reported Const General: cooperative, comfortable, no acute distress, alert and awake; No confusion Orientation/consciousness: oriented to person, oriented to place, patient oriented x3 and No confusion HENMT Head: Yes normocephalic Ears: external ears normal and TM's normal bilaterally Face and sinus: No sinus tenderness Mouth: Normal oral and palatal mucosa present and tongue normal Teeth and gingiva: dentition normal and gingiva normal Throat: Yes posterior oropharynx normal, Yes tonsils normal and Yes uvula midline Eyes Conjunctivae: conjunctivae normal Sclerae: sclerae normal Pupils: Equal, round and reactive pupils present EOM: EOMs intact bilaterally Direct Ophthalmoscopy: No no photophobia Neck Neck: Yes no lymphadenopathy, No tender and Yes no JVD Thyroid: Thyroid normal Carotids: no bruits Chest Chest palpation & inspection: no tenderness Resp Effort & Inspection: normal respiratory effort, no audible wheezes, not labored and no stridor Auscultation: no crackles, no rales, no rhonchi and no wheezes Cardio Jugular venous distension: no JVD Rate: regular rate, not bradycardic and not tachycardic Rhythm: regular rhythm Bruits: no carotid bruits Peripheral pulses: Peripheral pulses 2+ throughout GI Inspection: Yes normal to inspection, No abdominal wall ecchymosis and No visible herniation Palpation (GI): Soft to palpation, nontender, no guarding, not rigid and No hepatosplenomegaly present Auscultation: normoactive bowel sounds General: Yes no CVA tenderness Back/Spine/Pelvis Back: no CVA tenderness and No back tenderness Cervical Spine: cervical ROM normal Thoracic/Lumbar Spine: thoracic and lumbar spine normal to inspection, straight leg raise negative bilaterally, No thoraco-lumbar ROM limited and No lumbar spinal tenderness Skin Lesions: no lesions Rashes: no rashes Wounds: no wounds Neuro General: oriented to person, oriented to place, patient oriented x3, CN's II-XI intact bilaterally and No confusion Cranial nerves: Yes Equal, round and reactive pupils present and Yes Normal accommodation reflex present Cognition (Neuro): normal cognition Speech: No Abnormal speech present Gait exam (Neuro): Normal gait present Motor exam (neuro): 5/5 motor strength present throughout Extrem Right upper extremity: full ROM; no cyanosis Left upper extremity: full ROM; no cyanosis Right lower extremity: no edema Left lower extremity: no edema Psych Appearance: grossly normal Mental Status: mental status grossly normal Affect: normal affect Attitude: cooperative Thought process: Normal thought process present Office Procedures Flu Questionnaire Does the patient have a severe egg allergy?: No Does the patient have severe life threatening allergies?: No Does the patient have a fever or illness today?: No Has the patient ever had Guillain-[place] Syndrome?: No Has the patient ever had any past reaction to a flu shot?: No Immunizations Fluarix [id number] (PF) 45 mcg (15 mcg x 3)/0.5 mL IM syringe Performing Provider: Darius Sewell PA-C [facility] Administered by: Waleska Marcial CMA on 04/15/25 16:37 Dose Route Admin Location Dispensed Lot Number Expiration Date [facility] Hand Filer Balance Wheel 0.5 mL IM Left Deltoid 0.5 mL [id number] 01/06/26 [id number] FRSINE VIS Given Date VIS Provided VIS Publication Date 04/15/25 Single Vaccine 24 Eligibility Eligibility Date Funding Source Not [facility] Eligible 04/15/25 Private Coding Level of Care Code Est Pt Prev Care >65y(41790) Diagnoses Annual physical exam Z00.00 Primary hypertension I10 Hypertension type: primary hypertension Former smoker Z87.891 Borderline high cholesterol E78.9 Seizure disorder G40.909 Additional Codes PHQ-9 - 41282 - PHQ-9 Billing: Yes ([id number]) MADHAV-7 Assessment Billing - MADHAV-7 Assessment Tool: MADHAV-7 Assessment [id number] ([id number]) Assessment & Plan Assessment & Plan (1) Annual physical exam: Code(s): Z00.00 - Encounter for general adult medical examination without abnormal findings Category: Medical Plan: As per HPI (2) HTN (hypertension): Code(s): I10 - Essential (primary) hypertension Category: Medical Qualifiers: Hypertension type: primary hypertension Qualified Code(s): I10 - Essential (primary) hypertension Plan: Patient's blood pressure acceptable today in office. She takes supplements [id number](Garlique) which she feels is helping her blood pressure. Goal blood pressure to remain below 40/90 (3) Former smoker: Code(s): Z87.891 - Personal history of nicotine dependence Category: Social Hx Plan: Soledad reports she has stopped smoking cigarettes over last year.. She is proud of this and will continue to try to stay away from cigarette smoking. (4) Borderline high cholesterol: Code(s): E78.9 - Disorder of lipoprotein metabolism, unspecified Category: Medical Plan: Patient has a history of borderline high cholesterol. Will continue to follow lipid panel to ensure appropriate readings. Goal LDL to be below 130 (5) Seizure disorder: Code(s): G40.909 - Epilepsy, unspecified, not intractable, without status epilepticus Category: Medical Plan: Patient continues on Lamictal 25 mg and has not had any seizures. Has stopped following up in Neurology. Will continue on her current dose of Lamictal for now. Orders: Orders Lipid Panel 04/15/25 E78.9 - Disorder of lipoprotein metabolism, unspecified Lamotrigine Lamictal 04/15/25 G40.909 - Epilepsy, unspecified, not intractable, without status epilepticus Influenza [id number] Immunization 04/15/25 Z23 - Encounter for immunization Microalbumin, Random (w Creat) 04/15/25 I10 - Essential (primary) hypertension Complete Blood Count no Diff 04/15/25 I10 - Essential (primary) hypertension Comprehensive [place]. Panel Fast 04/15/25 I10 - Essential (primary) hypertension Patient Instructions: Goal: Blood pressure to remain below 140/90 LDL to remain below 30 Barrier: Adherence to physical activity and healthy eating habits
[2025-04-15 15:35] VITALS: BP 110/60; PULSE 67; TEMP 36.3; O2SAT 94; BMI 22.9
--- OUTSIDE RECORDS SUMMARY | 2025-04-15 18:21 | XMS_ITS | Clinical Summary ---
Author Organization [employer] Address [address] [place] [address] Care Team Providers Care Signals Analyst Name Role Phone Unavailable Primary Care Provider Unavailabl e Immunizations Immunization Administration Dates Next Due Influenza injectable quadriv alent preservative free 04/10/2023,04/05/2022,05/22/2015 Influenza, High Dose Seasona l, Preservative Free 05/08/2019 Influenza, trivalent, adjuvanted 06/06/2018 Pneumococcal Polysaccharide PPSV23 03/24/2021 Zoster, Recombinant 04/23/2024,01/30/2024 Social History Tobacco Use Types Packs/Day Years Used Date Smoking Tobacco: Never Assessed Comments Unknown Sex and Gender Information Value Date Recorded Sex Assigned at Female 01/30/2024 10:27 AM EDT Legal Sex Female 1:09 PM EDT Gender Identity Female 01/30/2024 10:27 AM EDT Sexual Orientation Straight 01/30/2024 10 :27 AM EDT Plan of Treatment Health Maintenance Due Date Last Done Comments Depression Screening 1940 Alcohol/Substance Use Screening 1952 Tobacco Screening 1952 DTaP/Tdap/Td Vaccines (1 - Tdap) 11/11/1959 RSV Patients and Patients Aged 60 years or older (1 - 1-dose 75+ series) 11/11/2015 Pneumococcal Vaccine: 50+ Years (2 of 2 - PCV) 03/24/2022 03/24/2021 COVID-19 Vaccine (3 - season) 2025 11/15/2020, 10/23/2020 Influenza Vaccine (#1) 2025 , 04/05/2022, 05/08/2019, Additional history exists Zoster Vaccines Completed 04/23/2024, 01/30/2024 HIB Vaccines Aged Out No longer eligi ble based on patient's age to complete this topic HPV Vaccines Aged Out No longer eligi ble based on patient's age to complete this topic Hepatitis A Vaccines Aged Out No long er eligible based on patient's age to complete this topic Hepatitis B Vaccines Aged Out No long er eligible based on patient's age to complete this topic IPV Vaccines Aged Out No longer eligi ble based on patient's age to complete this topic Meningococcal B Vaccine Aged Out No l onger eligible based on patient's age to complete this topic Meningococcal Vaccine Aged Out No del jona eligible based on patient's age to complete this topic RSV under 20 months Aged Out No longe r eligible based on patient's age to complete this topic Rotavirus Vaccines Aged Out No longer eligible based on patient's age to complete this topic
== END 2025-04-15 16:38 | disposition home or self-care (01) ==
LOC: HO.HMCH 15:08
PROVIDERS: PCP Physician Assistant; Visit Provider Physician Assistant
DX: Z23 Encounter for immunization (principal)

== ENCOUNTER → 2025-04-15 15:07 | Outpatient (BNVA) | payer MEDICARE, SELFPAY | PROVIDERS: PCP Physician Assistant; Visit Provider Physician Assistant | DX: Z00.00 Encounter for general adult medical examination without abnormal findings (principal); Z23 Encounter for immunization; I10 Essential (primary) hypertension; E78.9 Disorder of lipoprotein metabolism, unspecified; G40.909 Epilepsy, unspecified, not intractable, without status epilepticus; Z87.891 Personal history of nicotine dependence; Z13.31 Encounter for screening for depression; Z13.39 Encounter for screening examination for other mental health and behavioral disorders | CPT/HCPCS: 90471; 90656; 96127; 99397 ==

== ENCOUNTER 2025-04-19 10:09 | Outpatient (REF) | payer MEDICARE, SELFPAY ==
--- OUTSIDE RECORDS SUMMARY | 2025-04-19 10:13 | XMS_ITS | Clinical Summary ---
Author Organization [employer] Address [address] [facility] [place] [address] Care Team Providers Care Parachute/Combatant Diver Officer Name Role Phone Unavailable Primary Care Provider [...]
[2025-04-19 11:04] LABS: Hematocrit 45.3 % (37.0-47.0); Hemoglobin 14.3 g/dl (12.0-16.0); Mean Corpuscular HGB Conc 31.6 g/dl (31.0-35.0); Mean Corpuscular Hemoglobin 30.3 pg (27.0-33.0); Mean Corpuscular Volume 96.0 fL (80.0-98.0); NRBC Abs Auto 0.000 X10*3/uL (0.0-0.012); NRBC Pct Auto 0.0 /100WBC (0.0-0.2); Platelet Count 215 X10*3/uL (160-400); Red Blood Count 4.72 X10*6/uL (4.20-5.50); White Blood Count 8.4 X10*3/uL (4.8-10.8)
[2025-04-19 12:26] LABS: Alanine Aminotransferase 8 U/L (0-31); Albumin Level 3.5 g/dL (3.5-5.0); Alkaline Phosphatase 73 U/L (39-117); Anion Gap 12 (12-20); Aspartate Amino Transferase 28 U/L (5-31); Blood Urea Nitrogen 14 mg/dL (9-16); Calcium 9.4 mg/dL (8.4-10.2); Carbon Dioxide 22 mmol/L (22-29); Chloride 110 mmol/L (96-108); Cholesterol 189 mg/dL (<200); Estimated Glomerular Filt Rate > 60; HDL Cholesterol 49 mg/dL (>40); Potassium 4.2 mmol/L (3.3-5.1); Sodium 140 mmol/L (135-145); Total Protein 6.7 g/dL (6.5-8.0); Triglycerides 94 mg/dL (<150)
[2025-04-19 13:15] LABS: Microalbum/Creatinine Ratio Ur 7.7 ug/mg cr (<30)
[2025-04-23 13:18] LABS: Lamotrigine Lamictal 0.8 mcg/mL (2.5-15.0)
== END 2025-04-19 10:10 | disposition home or self-care (01) ==
LOC: HO.LAB 10:09
PROVIDERS: PCP Physician Assistant; Visit Provider Physician Assistant
DX: G40.909 Epilepsy, unspecified, not intractable, without status epilepticus (principal); I10 Essential (primary) hypertension; E78.9 Disorder of lipoprotein metabolism, unspecified
CPT/HCPCS: 36415; 80053; 80061; 80175; 82043; 82570; 85027

== ENCOUNTER 2025-05-22 13:46 | Outpatient (AMB) | payer MEDICARE, SELFPAY ==
--- NOTE | 2025-05-22 13:52 | MHC.PC.OV ---
Vital Signs 05/22/25 13:59 Height 5 ft 5 in Weight 135 lb 6 oz BMI 22.5 BP 136/90 H Blood Pressure Location Lt brachial Position Sitting Pulse 71 Pulse Source Pulse Oximeter Temp 97.3 F Temp Source Temporal Artery Scan Pulse Oximetry (%) 95 Oxygen Delivery Method Room Air Intake Visit Reasons: Ear Wax Build up Allergies codeine (CODEINE) Allergy (Intermediate, Verified 05/22/25 14:02) BUMPS IN MOUTH Penicillins (PENICILLINS) Allergy (Intermediate, Verified 05/22/25 14:02) mouth sores Tobacco use date assessed: 05/22/25 Fall risk assessment: No Falls in past year Last assessed Fall Risk: 05/22/25 Dental Screening Dental Screen Date: 05/22/25 Did you have a dental visit in the last 12 months?: Yes Did you have a dental problem in the last 6 months where you did not have access to dental care?: No Was dental information given to patient?: Patient has dentist HPI Ear Wax Build up HPI Details Patient is an 84-year-old female here today for left ear cerumen impaction. Patient tolerated left ear lavage well and was able to hear much better after lavage. [facility] Medical History First degree AV block Hypercalcemia Hyperkalemia Polymyalgia rheumatica (~04/14/21) Adrenal gland cyst Rheumatoid arthritis Arthritis Surgical History Hx of cholecystectomy Hx of appendectomy Family History Mother Coronary artery disease Myocardial infarction Social History Housing: House Alcohol intake: current Alcohol intake frequency: a few times a month Alcohol type: wine Patient Tobacco Use Status: Former Tobacco user Tobacco use type: Cigarette Cigarette Packs Per Day: 0.5 Cigarettes Per Day: 10.0 Years Smoked: 50 years e-Cigarette/Vaping Use: Never Used Second Hand Smoke Exposure: Yes Advance Directives Date on File: 04/12/21 service: No Current occupational status: retired Cognitive needs: No Hearing needs: No Vision needs: Yes (Glasses) Questionnaire PHQ-9 Over the last 2 weeks, how often have you been bothered by any of the following problems? 1. Little interest or pleasure in doing things: not at all 2. Feeling down, depressed, or hopeless: not at all 3. Trouble falling or staying asleep, or sleeping too much: not at all 4. Feeling tired or having little energy: not at all 5. Poor appetite or overeating: not at all 6. Feeling bad about yourself - or that you are a failure or have let yourself or your family down: not at all 7. Trouble concentrating on things, such as reading the newspaper or watching television: not at all 8. Moving or speaking so slowly that other people could have noticed. Or the opposite - being so fidgety or restless that you have been moving around a lot more than usual: not at all 9. Thoughts that you would be better off or of hurting yourself in some way: not at all Total score: 0 Depression Screening Interpretation: Negative Depression Screening Done: Yes Source: Developed by Drs. Sanjay Luna, Mirlande Goncalves, Braulio Garcia and colleagues, with an educational nasreen from [employer]. Thrive Questionnaire Date Thrive assessed: 04/15/25 I am a: Patient What is your living situation today?: I have a steady place to live Within the past 12 months, did the food you bought not last and you didn't have the money to get more?: Never true Within the past 12 months, did you worry whether your food would run out before you got money to buy more?: Never true Do you have trouble paying for medicines?: No Do you have trouble getting transportation to medical appointments?: No Do you have trouble paying your heating and electricity bill?: No Do you have trouble taking care of your child, family member or friend?: No Do you have trouble with day-to-day activities such as bathing, preparing meals, shopping, managing finances, etc.?: No Are you currently unemployed and looking for a job?: No Are you interested in more education?: No Please select the resources that you would like help with: Care for elder or disabled Currently or been in a relationship where the following occur: No concerns reported THRIVE Score: 0 AUDIT C Alcohol Use Questionnaire (AUDIT-C) 1. How often do you have a drink containing alcohol?: Monthly or less 2. How many drinks containing alcohol do you have on a typical day when you are drinking?: 1 or 2 3. How often do you have six or more drinks on one occasion?: Never Total Score: 1 MADHAV-7 AMB Questionnaire MADHAV-7 Date MADHAV - 7 assessed: 04/15/25 Feeling nervous, anxious, or on edge: 0 = Not at all Not being able to stop or control worryin = Not at all Worrying too much about different things: 0 = Not at all Trouble relaxin = Not at all Being so restless that it is hard to sit still: 0 = Not at all Becoming easily annoyed or irritable: 0 = Not at all Feeling afraid as if something awful might happen: 0 = Not at all Total MADHAV-7 score (0-4 normal; 5-9 mild; 10-14 moderate; 15-21 severe): 0 Source: Developed by Drs. Sanjay Luna, Mirlande Goncalves, Braulio Garcia and colleagues, with an educational nasreen from [employer]. Review of Systems Const Denies headache(s) Eyes Denies loss of vision ENT Denies vertigo, Denies dizziness, Denies headache(s) and Denies sore throat Card Denies chest pain, Denies leg edema and Denies lightheadedness Resp Denies cough, Denies hemoptysis and Denies wheezing GI Denies abdominal pain, Denies melena, Denies constipation, Denies diarrhea and Denies vomiting Denies urinary frequency, Denies dysuria and Denies urinary urgency Musc Denies arthralgias, Denies joint swelling, Denies numbness and Denies tingling Neuro Denies Abnormal speech present, Denies behavioral changes, Denies vertigo, Denies dizziness, Denies headache(s), Denies loss of vision, Denies memory loss, Denies numbness and Denies tingling Psych Denies anxiety, Denies behavioral changes, Denies depression, Denies memory loss and Denies panic attacks Rosas/Lymph Denies easy bleeding and Denies easy bruising Aller/Immun Denies wheezing Physical exam (Primary Care) Vital Signs: Last Vital Signs Temp 97.3 F 05/22/25 13:59 Pulse 71 05/22/25 13:59 BP 136/90 H 05/22/25 13:59 Pulse Ox 95 05/22/25 13:59 Oxygen Delivery Method Room Air 05/22/25 13:59 BMI result Body Mass Index 22.5 Tobacco/Smoking Status: Tobacco use Status Tobacco use date assessed 05/22/25 05/22/25 14:05 Patient Tobacco Use Status Former Tobacco user 05/22/25 13:54 Tobacco use type Cigarette 05/22/25 13:54 e-Cigarette/Vaping Use Never Used 05/22/25 13:54 PHQ-9: PHQ-9 Score PHQ-9: Total score 0 05/22/25 14:05 Depression Screening Interpretation: Negative Thrive Assessment: Date of Thrive Assessment Date Thrive assessed 04/15/25 05/22/25 13:54 Currently or been in a relationship where the following occur: No concerns reported Const General: healthy appearing, no acute distress, alert and awake Nutritional Appearance: well nourished Orientation/consciousness: oriented to person, oriented to place and oriented to time HENMT Other: LEFT EXTERNAL CANAL CLEAR OF CERUMEN AFTER LAVAGE. Ears: TM's normal bilaterally General nose exam: Normal nasal mucous membranes and turbinates present Eyes Conjunctivae: conjunctivae normal Sclerae: sclerae normal Pupils: Equal, round and reactive pupils present Neck Neck: Yes no lymphadenopathy and Yes no JVD Thyroid: Thyroid normal Carotids: no bruits Resp Effort & Inspection: normal respiratory effort and not tachypneic Auscultation: no crackles, no rales, no rhonchi and no wheezes Cardio Rate: regular rate Rhythm: regular rhythm Heart sounds: no murmurs and normal S1 and S2 GI Palpation (GI): Soft to palpation, nontender, no hepatomegaly and no splenomegaly Auscultation: normal bowel sounds Skin General skin exam: no rashes or lesions noted and dry skin Neuro General: oriented to person, oriented to place and oriented to time Cranial nerves: Yes Equal, round and reactive pupils present Speech: No Abnormal speech present Gait exam (Neuro): Normal gait present Motor exam (neuro): no tremor noted Extrem Right upper extremity: full ROM Left upper extremity: full ROM Right lower extremity: full ROM; no edema Left lower extremity: full ROM; no edema Psych Mental Status: mental status grossly normal Speech and movement: Normal speech and movement present Affect: normal affect Attitude: cooperative Thought process: Normal thought process present Office Procedures Cerumen Removal From which ear canal was the cerumen removed: left Removal: irrigation and otoscope w/curette Notes: patient tolerated procedure well [id number] Irrigation/Lavage Coding Level of Care Code Est Pt Level 3 (31403) Diagnoses Left ear impacted cerumen H61.22 CPT Codes Office Procedure - CPT: 94152-Gji Irrigation/Lavage ([id number]) Assessment & Plan Assessment & Plan (1) Left ear impacted cerumen: Code(s): H61.22 - Impacted cerumen, left ear Category: Medical Plan: PER OFFICE PROCEDURE NOTE.
[2025-05-22 13:59] VITALS: BP 136/90; PULSE 71; TEMP 36.3; O2SAT 95; BMI 22.5
--- OUTSIDE RECORDS SUMMARY | 2025-05-22 17:10 | XMS_ITS | Clinical Summary ---
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
== END 2025-05-22 14:16 | disposition home or self-care (01) ==
LOC: HO.HMCH 13:47
PROVIDERS: PCP Physician Assistant; Visit Provider Physician Assistant
DX: H61.22 Impacted cerumen, left ear (principal)

== ENCOUNTER → 2025-05-22 13:46 | Outpatient (BNVA) | payer MEDICARE, SELFPAY | PROVIDERS: PCP Physician Assistant; Visit Provider Physician Assistant | DX: H61.22 Impacted cerumen, left ear (principal); Z13.31 Encounter for screening for depression | CPT/HCPCS: 69210; 96127; 99212 ==

== ENCOUNTER 2025-06-09 12:09 | Outpatient (REF) | payer MEDICARE, SELFPAY ==
[2025-06-09 15:10] LABS: Folate > 20.0 ng/mL (> or = 4.0); Vitamin B12 329 pg/mL (200-900)
== END 2025-06-09 12:10 | disposition home or self-care (01) ==
LOC: HO.LAB 12:09
PROVIDERS: PCP Physician Assistant; Referring Provider Physician Assistant; Visit Provider Psychiatry & Neurology Neurology
DX: G40.909 Epilepsy, unspecified, not intractable, without status epilepticus (principal); I67.89 Other cerebrovascular disease; F03.90 Unspecified dementia, unspecified severity, without behavioral disturbance, psychotic disturbance, mood disturbance, and anxiety; G21.4 Vascular parkinsonism
CPT/HCPCS: 36415; 82607; 82746; 99212

== ENCOUNTER → 2025-06-09 12:09 | Outpatient (AMB) | payer MEDICARE, SELFPAY ==
--- NOTE | 2025-06-09 12:14 | A.OFFVIS_ITS ---
Intake Visit Reasons: 1YR FU Allergies codeine (CODEINE) Allergy (Intermediate, Verified 05/22/25 14:02) BUMPS IN MOUTH Penicillins (PENICILLINS) Allergy (Intermediate, Verified 05/22/25 14:02) mouth sores HPI Comments Details: 84 yo woman who probably has seizure disorder. She had a feeling that was hard to explain, like she was going to pass out, and then she passed out. She hit her head on something and had a laceration. When she woke up she saw her daughter there. Her daughter said that it was about 20 minutes during which she was unconscious. She hit her head on hard oject and had a laceration. She did not urinate, but she was vomiting. She is presenting for a follow-up visit regarding the patient's cognitive status. The patient has been followed for 4-5 years and was last seen in June. The patient was previously told of a diagnosis of Alzheimer's disease, but questions this diagnosis, reporting two negative screening tests from the primary doctor and a senior center. A brain scan from 2020 showed significant brain atrophy and numerous small strokes. The patient denies any seizures and reports taking medication for them. Additionally, there is a history of hand and head shaking, as well as a past history of Zee's palsy affecting the left eye. Family history is significant for a father and a brother with Alzheimer's disease; the patient is the primary caregiver for the brother. The patient reports being physically and socially active. [facility] Medical History First degree AV block Hypercalcemia Hyperkalemia Polymyalgia rheumatica (~04/14/21) Adrenal gland cyst Rheumatoid arthritis Arthritis Surgical History Hx of cholecystectomy Hx of appendectomy Family History Mother Coronary artery disease Myocardial infarction Social History Housing: House Alcohol intake: current Alcohol intake frequency: a few times a month Alcohol type: wine Patient Tobacco Use Status: Former Tobacco user Tobacco use type: Cigarette Cigarette Packs Per Day: 0.5 Cigarettes Per Day: 10.0 Years Smoked: 50 years e-Cigarette/Vaping Use: Never Used Second Hand Smoke Exposure: Yes Advance Directives Date on File: 04/12/21 service: No Current occupational status: retired Cognitive needs: No Hearing needs: No Vision needs: Yes (Glasses) Review of Systems Narrative - Constitutional: Reports being physically and socially active. - Neurological: Reports memory is fine but questions a prior diagnosis of Alzh eimer's disease. Denies seizures. - All other systems were reviewed and are negative. Physical Exam Neuro Other: Mental Status: Alert and oriented to person, place, and time. Normal attention. Normal spontaneous speech, fluency, and comprehension. MOCA: 19. Cranial Nerves: CN II: Visual full to confrontation, visual acuity intact. CN III, IV, : Pupils equal, round, reactive to light and accommodation. Extraocular movements are normal. CN V: Facial sensation is normal. CN VII: Mild left facial weakness, peripheral type CN VIII: Hearing intact to bedside conversation is normal. CN IX, X: Palate elevates symmetrically. CN XI: Shoulder shrug and head turn symmetrical. CN XII: Tongue midline without atrophy or fasciculations. Extrapyramidal: Mild head tremor Speech: Normal; no dysarthria or tremor. Assessment & Plan Assessment & Plan (1) Seizure disorder: Code(s): G40.909 - Epilepsy, unspecified, not intractable, without status epilepticus Category: Medical (2) Cerebral microvascular disease: Code(s): I67.89 - Other cerebrovascular disease Category: Medical Plan: Echocardiogram at [facility] in Apr 2021: WNL NICS at [facility] in Apr 2021: OK CT head at [facility] in Apr 2021: Mod severe MVD, mod atrophy Routine EEG at [facility] in May 2021: WNL MRI brain WWO at [facility] in May 2021: mod to severe MVD, mod atrophy. 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 e: Seizure disorder f: Remote h/o left facial neuropathy Rec: a: Education about her situation b: Health proxy and POA papers should be in place c: Limited driving d: Lamotrigine 25mg bid e: B12 and folate levels f: Stay socially and physically active g: Avoid going out at night or in bad weather or during saldana hours Orders: Orders Vitamin B12 and Folate Today F03.90 - Unspecified dementia, unspecified severity, without behavioral disturbance, psychotic disturbance, mood disturbance, and anxiety Medications: New lamotrigine 25 mg PO BID 180 tabs 1RF Coding Level of Care Code Est Pt Level 5 (70088) Diagnoses Seizure disorder G40.909 Cerebral microvascular disease I67.89 Multifactorial dementia F03.90 Vascular parkinsonism G21.4 Time Spent (min) 50
--- OUTSIDE RECORDS SUMMARY | 2025-06-09 15:54 | XMS_ITS | Clinical Summary ---
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
== END ==
LOC: HO.HSM 12:10
PROVIDERS: PCP Physician Assistant; Referring Provider Physician Assistant; Visit Provider Psychiatry & Neurology Neurology
DX: G40.909 Epilepsy, unspecified, not intractable, without status epilepticus (principal); I67.89 Other cerebrovascular disease; F03.90 Unspecified dementia, unspecified severity, without behavioral disturbance, psychotic disturbance, mood disturbance, and anxiety; G21.4 Vascular parkinsonism
CPT/HCPCS: 99215